=== PATIENT | male | born 1955 | race Caucasian/White ===

== ENCOUNTER → 2023-12-28 | Outpatient (CLI) | payer MEDICARE, BC, SELFPAY ==
--- NOTE | 2023-12-28 12:46 | XR_ITS ---
Examination: PA chest single view TECHNIQUE: Upright PA chest single view Exam date 9: December 28, 2023 1501 hours INDICATIONS: Congestion difficulty breathing one week, history cardiac stents FINDINGS: Mild prominence cardiac contour Mild prominence pulmonary vasculature. No lobar pneumonia or pulmonary edema Moderate osteopenia Moderate thoracic spondylosis IMPRESSION: Mild vascular congestion
[2023-12-28 14:00] LABS: Basophils # (Auto) 0.1 Thou/mm3 (0.0-0.2); Basophils % (Auto) 1 % (0-2.5); Eosinophils # (Auto) 0.2 Thou/mm3 (0.0-0.5); Eosinophils % (Auto) 2 % (0-10); Hematocrit 35.3 % (41.0-53.0); Hemoglobin 11.8 g/dL (13.5-16.0); Immature Granulocytes % (Auto) 0 % (0-0); Immature Granulocytes Auto 0.02 Thou/mm3 (0.00-0.00); Lymphocytes # (Auto) 2.2 Thou/mm3 (1.0-4.8); Lymphocytes % (Auto) 22 % (10-50); Mean Corpuscular HGB Conc 33.4 g/dl (31.0-37.0); Mean Corpuscular Hemoglobin 32.2 pg (25.0-35.0); Mean Corpuscular Volume 96 fL (80-100); Monocytes # (Auto) 0.8 Thou/mm3 (0.0-0.8); Monocytes % (Auto) 8 % (0-12); Neutrophils # (Auto) 6.6 Thou/mm3 (1.8-7.7); Neutrophils % (Auto) 67 % (37-80); Nucleated Red Blood Cell % 0 /100 WBC (0); Platelet Count 308 Thou/mm3 (140-440); RDW Standard Deviation 49.1 fL (35.1-43.9); Red Blood Count 3.66 Miln/mm3 (4.50-5.90); White Blood Count 9.8 Thou/mm3 (3.8-10.6)
[2023-12-28 14:07] LABS: Prostate Specific Antigen 1.06 ng/mL (0-4.00)
[2023-12-28 14:08] LABS: Glucose Estimated Average 105 mg/dL (80-131); Hemoglobin A1C 5.3 % Hgb (4.8-6.0)
[2023-12-28 15:14] LABS: Alanine Aminotransferase 16 U/L (10-49); Albumin, Serum 4.8 gm/dL (3.4-4.8); Albumin/Globulin Ratio 1.9 (1.2-2.2); Alkaline Phosphatase 59 U/L (46-116); Anion Gap 9 (7-16); Aspartate Amino Transferase 16 U/L (0-34); BUN/Creatinine Ratio 16 Ratio (12-20); Bilirubin,Direct 0.2 mg/dL (0.0-0.3); Bilirubin,Total 0.5 mg/dL (0.3-1.2); Blood Urea Nitrogen 24 mg/dL (9-23); Calcium 9.3 mg/dL (8.3-10.6); Calcium (Corrected) 9.3 mg/dL (8.5-10.1); Carbon Dioxide 22.9 mMol/L (20.0-31.0); Chloride 107 mMol/L (98-107); Creatinine (Component) 1.5 mg/dL (0.6-1.3); Globulin 2.5 gm/dL (2.3-3.5); Glucose 89 mg/dL (74-106); Osmolality,Calculated 280 (275-295); Potassium 4.1 mMol/L (3.4-5.1); Sodium 139 mMol/L (136-145); Total Protein 7.3 gm/dL (5.7-8.2); eGFR 50 See Note
[2023-12-28 15:27] LABS: Cholesterol 170 mg/dL (132-200); HDL Cholesterol 42 mg/dL (40-60); LDL Cholesterol,Calculated 110 mg/dL (0-130); Triglycerides 88 mg/dL (30-150)
== END | disposition home or self-care (01) ==
LOC: CDIM 12:29 → COPL 12:42
PROVIDERS: PCP Internal Medicine; Referring Provider Internal Medicine; Visit Provider Radiology Diagnostic Radiology
DX: J98.4 Other disorders of lung (principal); R07.9 Chest pain, unspecified; R06.02 Shortness of breath
CPT/HCPCS: 36415; 71046; 80053; 80061; 82248; 83036; 84100; 84153; 85025

== ENCOUNTER → 2024-02-12 | Outpatient (CLI) | payer MEDICARE, SELFPAY ==
[2024-02-12 11:34] LABS: Basophils # (Auto) 0.1 Thou/mm3 (0.0-0.2); Basophils % (Auto) 1 % (0-2.5); Eosinophils # (Auto) 0.2 Thou/mm3 (0.0-0.5); Eosinophils % (Auto) 3 % (0-10); Hematocrit 38.3 % (41.0-53.0); Hemoglobin 12.5 g/dL (13.5-16.0); Immature Granulocytes % (Auto) 0 % (0-0); Immature Granulocytes Auto 0.02 Thou/mm3 (0.00-0.00); Lymphocytes # (Auto) 1.4 Thou/mm3 (1.0-4.8); Lymphocytes % (Auto) 21 % (10-50); Mean Corpuscular HGB Conc 32.6 g/dl (31.0-37.0); Mean Corpuscular Hemoglobin 32.1 pg (25.0-35.0); Mean Corpuscular Volume 99 fL (80-100); Monocytes # (Auto) 0.7 Thou/mm3 (0.0-0.8); Monocytes % (Auto) 10 % (0-12); Neutrophils # (Auto) 4.2 Thou/mm3 (1.8-7.7); Neutrophils % (Auto) 64 % (37-80); Nucleated Red Blood Cell % 0 /100 WBC (0); Platelet Count 288 Thou/mm3 (140-440); RDW Standard Deviation 55.6 fL (35.1-43.9); Red Blood Count 3.89 Miln/mm3 (4.50-5.90); White Blood Count 6.6 Thou/mm3 (3.8-10.6)
[2024-02-12 12:18] LABS: Albumin, Serum 4.7 gm/dL (3.4-4.8); Anion Gap 10 (7-16); BUN/Creatinine Ratio 13 Ratio (12-20); Blood Urea Nitrogen 19 mg/dL (9-23); Calcium 9.7 mg/dL (8.3-10.6); Calcium (Corrected) 9.7 mg/dL (8.5-10.1); Carbon Dioxide 25.3 mMol/L (20.0-31.0); Chloride 105 mMol/L (98-107); Creatinine (Component) 1.5 mg/dL (0.6-1.3); Glucose 95 mg/dL (74-106); Osmolality,Calculated 281 (275-295); Phosphorous 3.9 mg/dL (2.4-5.1); Potassium 4.5 mMol/L (3.4-5.1); Sodium 140 mMol/L (136-145); eGFR 50 See Note
[2024-02-12 12:23] LABS: B-Type Natriuretic Peptide 970 pg/mL (0-100)
== END | disposition home or self-care (01) ==
PROVIDERS: PCP Family Medicine; Referring Provider Family Medicine; Visit Provider Internal Medicine
DX: I50.20 Unspecified systolic (congestive) heart failure (principal)
CPT/HCPCS: 36415; 80069; 83880; 85025

== ENCOUNTER → 2024-03-29 | Outpatient (CLI) | payer MEDICARE, SELFPAY ==
[2024-03-29 14:46] LABS: Albumin, Serum 4.5 gm/dL (3.4-4.8); Anion Gap 11 (7-16); BUN/Creatinine Ratio 17 Ratio (12-20); Blood Urea Nitrogen 35 mg/dL (9-23); Calcium 9.4 mg/dL (8.3-10.6); Calcium (Corrected) 9.4 mg/dL (8.5-10.1); Carbon Dioxide 26.7 mMol/L (20.0-31.0); Chloride 102 mMol/L (98-107); Creatinine (Component) 2.1 mg/dL (0.6-1.3); Glucose 92 mg/dL (74-106); Osmolality,Calculated 287 (275-295); Phosphorous 3.9 mg/dL (2.4-5.1); Potassium 4.6 mMol/L (3.4-5.1); Sodium 140 mMol/L (136-145); eGFR 33 See Note
[2024-03-29 14:47] LABS: B-Type Natriuretic Peptide 1218 pg/mL (0-100)
== END | disposition home or self-care (01) ==
PROVIDERS: PCP Family Medicine; Referring Provider Family Medicine; Visit Provider Family Medicine
DX: I50.20 Unspecified systolic (congestive) heart failure (principal)
CPT/HCPCS: 36415; 80069; 83880

== ENCOUNTER → 2024-06-20 | Outpatient (CLI) | payer MEDICARE, BC, SELFPAY ==
[2024-06-20 13:16] LABS: Basophils # (Auto) 0.1 Thou/mm3 (0.0-0.2); Basophils % (Auto) 1 % (0-2.5); Eosinophils # (Auto) 0.2 Thou/mm3 (0.0-0.5); Eosinophils % (Auto) 3 % (0-10); Hematocrit 33.7 % (41.0-53.0); Hemoglobin 11.4 g/dL (13.5-16.0); Immature Granulocytes % (Auto) 0 % (0-0); Immature Granulocytes Auto 0.02 Thou/mm3 (0.00-0.00); Lymphocytes # (Auto) 1.8 Thou/mm3 (1.0-4.8); Lymphocytes % (Auto) 23 % (10-50); Mean Corpuscular HGB Conc 33.8 g/dl (31.0-37.0); Mean Corpuscular Hemoglobin 32.7 pg (25.0-35.0); Mean Corpuscular Volume 97 fL (80-100); Monocytes # (Auto) 0.7 Thou/mm3 (0.0-0.8); Monocytes % (Auto) 10 % (0-12); Neutrophils # (Auto) 4.9 Thou/mm3 (1.8-7.7); Neutrophils % (Auto) 64 % (37-80); Nucleated Red Blood Cell % 0 /100 WBC (0); Platelet Count 258 Thou/mm3 (140-440); Red Blood Count 3.49 Miln/mm3 (4.50-5.90); White Blood Count 7.6 Thou/mm3 (3.8-10.6)
[2024-06-20 13:27] LABS: Prostate Specific Antigen 1.34 ng/mL (0-4.00)
[2024-06-20 13:29] LABS: Anion Gap 8 (7-16); BUN/Creatinine Ratio 19 Ratio (12-20); Blood Urea Nitrogen 33 mg/dL (9-23); Calcium 8.8 mg/dL (8.3-10.6); Carbon Dioxide 26.4 mMol/L (20.0-31.0); Cardiac Risk Estimate 3.9 RATIO (4.0-6.7); Chloride 104 mMol/L (98-107); Cholesterol 121 mg/dL (132-200); Creatinine (Component) 1.7 mg/dL (0.6-1.3); Glucose 91 mg/dL (74-106); HDL Cholesterol 31 mg/dL (40-60); LDL Cholesterol,Calculated 76 mg/dL (0-130); Osmolality,Calculated 282 (275-295); Phosphorous 3.7 mg/dL (2.4-5.1); Potassium 3.7 mMol/L (3.4-5.1); Sodium 138 mMol/L (136-145); Triglycerides 71 mg/dL (30-150); eGFR 43 See Note
[2024-06-20 13:45] LABS: Glucose Estimated Average 108 mg/dL (80-131); Hemoglobin A1C 5.4 % Hgb (4.8-6.0)
[2024-06-20 13:56] LABS: B-Type Natriuretic Peptide 908 pg/mL (0-100)
== END | disposition home or self-care (01) ==
PROVIDERS: PCP Family Medicine; Referring Provider Family Medicine; Visit Provider Internal Medicine
DX: R06.02 Shortness of breath (principal)
CPT/HCPCS: 36415; 80048; 80061; 83036; 83880; 84100; 84153; 85025

== ENCOUNTER → 2024-06-21 | Outpatient (CLI) | payer MEDICARE, BC, SELFPAY ==
--- NOTE | 2024-06-21 14:02 | XR_ITS ---
Examination: CT chest with intravenous contrast CT chest without intravenous contrast 2-D reconstructions Date and time of exam:09/21/2024 1423 hours INDICATIONS: Coughing shortness of breath one month CTDI:vol (mGy) 27 DLP: (mGycm) 982 Technique: Multiple axial sections of the thorax have been obtained. 3 mm slice thickness, from the hemidiaphragms to above the apices of the lungs. Mediastinal and lung density settings have been obtained. Intravenous contrast administered 30 cc Isovue-300 Noncontrast images have also been obtained. 2-D sagittal coronal images obtained. Low dose protocols were performed. One or more of the following dose reduction techniques were used; automated exposure control, adjustment of the mA and/or KV according to patient size, use of iterative reconstruction technique. Findings: Large right pleural effusion AP dimension ascending thoracic aorta 3.8 cm No pulmonary artery filling defects Heavy calcification left anterior descending coronary artery Mild enlargement cardiac contour Small left pleural effusion Vascular congestion, moderate Cirrhosis, liver nodular in contour Mild ascites No pancreatic or adrenal mass Moderate osteopenia IMPRESSION: Mild chronic heart failure pattern Large right pleural effusion
== END | disposition home or self-care (01) ==
LOC: SDIM 13:53
PROVIDERS: PCP Family Medicine; Referring Provider Internal Medicine; Visit Provider Internal Medicine
DX: J90 Pleural effusion, not elsewhere classified (principal)
CPT/HCPCS: 71270; A4649; Q9967

== ENCOUNTER → 2024-06-24 | Outpatient (CLI) | payer MEDICARE, BC, SELFPAY ==
[2024-06-24 16:11] LABS: Basophils # (Auto) 0.1 Thou/mm3 (0.0-0.2); Basophils % (Auto) 1 % (0-2.5); Eosinophils # (Auto) 0.3 Thou/mm3 (0.0-0.5); Eosinophils % (Auto) 4 % (0-10); Hematocrit 34.5 % (41.0-53.0); Hemoglobin 11.3 g/dL (13.5-16.0); Immature Granulocytes % (Auto) 0 % (0-0); Immature Granulocytes Auto 0.02 Thou/mm3 (0.00-0.00); Lymphocytes # (Auto) 1.8 Thou/mm3 (1.0-4.8); Lymphocytes % (Auto) 23 % (10-50); Mean Corpuscular HGB Conc 32.8 g/dl (31.0-37.0); Mean Corpuscular Hemoglobin 32.8 pg (25.0-35.0); Mean Corpuscular Volume 100 fL (80-100); Monocytes # (Auto) 0.9 Thou/mm3 (0.0-0.8); Monocytes % (Auto) 11 % (0-12); Neutrophils % (Auto) 62 % (37-80); Nucleated Red Blood Cell % 0 /100 WBC (0); Platelet Count 246 Thou/mm3 (140-440); RDW Standard Deviation 57.5 fL (35.1-43.9); Red Blood Count 3.45 Miln/mm3 (4.50-5.90)
[2024-06-24 16:18] LABS: INR 1.2 (0.9-1.3); Partial Thromboplastin Time 28.6 Seconds (22.0-36.0); Prothrombin Time 12.7 Seconds (9.0-12.2)
[2024-06-24 16:21] LABS: Anion Gap 6 (7-16); BUN/Creatinine Ratio 18 Ratio (12-20); Blood Urea Nitrogen 33 mg/dL (9-23); Carbon Dioxide 28.9 mMol/L (20.0-31.0); Chloride 102 mMol/L (98-107); Creatinine (Component) 1.8 mg/dL (0.6-1.3); Glucose 100 mg/dL (74-106); Osmolality,Calculated 281 (275-295); Potassium 4.1 mMol/L (3.4-5.1); Sodium 137 mMol/L (136-145); eGFR 40 See Note
== END | disposition home or self-care (01) ==
LOC: COPL 15:03
PROVIDERS: PCP Family Medicine; Referring Provider Internal Medicine; Visit Provider Internal Medicine
DX: I25.10 Atherosclerotic heart disease of native coronary artery without angina pectoris (principal); I48.91 Unspecified atrial fibrillation
CPT/HCPCS: 36415; 80048; 85025; 85610; 85730

== ENCOUNTER → 2024-06-27 | Outpatient (CLI) | payer MEDICARE, BC, SELFPAY ==
--- NOTE | 2024-06-27 | XR_ITS ---
Examination: PA chest single view TECHNIQUE: Upright PA chest single view Date and time: June 27, 2024 1252 hours INDICATIONS: Postthoracentesis today. FINDINGS: No pneumothorax post thoracentesis Mild enlargement cardiac contour Moderate osteopenia IMPRESSION: No pneumothorax post thoracentesis
--- NOTE | 2024-06-27 12:00 | XR_ITS ---
Examination: Ultrasound-guided right thoracentesis Ultrasound right hemithorax Ultrasound left hemithorax Date and time: June 27, 2024 1103 hours INDICATIONS: Difficulty breathing this week, large right pleural effusion on CT chest June 21, 2024 TECHNIQUE AND FINDINGS: Grayscale sonographic images right and left hemithoraces Large right pleural effusion Informed consent provided. Timeout performed Sterile drape applied hand hygiene maximum barrier sterile technique ultrasound sterile technique 1% lidocaine administered for local anesthesia Utilizing ultrasonographic guidance 5 Telugu catheter placed in the right pleural space 1600 cc pleural fluid removed Estimated blood loss 0 cc IMPRESSION: Successful ultrasound-guided right thoracentesis, 1600 cc pleural fluid removed
== END | disposition home or self-care (01) ==
PROVIDERS: PCP Family Medicine; Referring Provider Internal Medicine; Visit Provider Internal Medicine
DX: J90 Pleural effusion, not elsewhere classified (principal); R06.02 Shortness of breath
CPT/HCPCS: 32555; C1729

== ENCOUNTER 2024-07-27 11:32 | Emergency (ER) | payer MEDICARE, BC, SELFPAY ==
--- NOTE | 2024-07-27 | XR_ITS ---
Examination: PA chest single view TECHNIQUE: Upright PA chest single view Date and time: July 27, 2024 1302 hours INDICATIONS: Post right thoracentesis FINDINGS: Decrease in right pleural fluid compared with July 27, 2024 No pneumothorax Mild to moderate enlargement cardiac contour IMPRESSION: No pneumothorax post thoracentesis
[2024-07-27 11:33] VITALS: BMI 26.4
[2024-07-27 11:55] VITALS: BP 115/62; PULSE 98; RESP 16; TEMP 37.2; O2SAT 91
--- NOTE | 2024-07-27 11:56 | EKG_ITS ---
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
--- NOTE | 2024-07-27 11:57 | XR_ITS ---
Examination: Ultrasound-guided right thoracentesis Ultrasound right and left hemithoraces Date and time: July 27, 2024 1239 hours INDICATIONS: Shortness of breath this week, history recurrent large right pleural effusions TECHNIQUE AND FINDINGS: Sonographic images right and left hemithoraces demonstrate large right pleural effusion Informed consent provided. Timeout performed. Skin prepped over the right hemithorax and sterile drape applied hand hygiene ultrasound sterile technique 1% lidocaine administered for local anesthesia Utilizing ultrasonographic guidance 5 British catheter introduced percutaneously into the right hemithorax 1750 cc pleural fluid removed IMPRESSION: Successful ultrasound-guided right thoracentesis, 1750 cc pleural fluid removed
--- NOTE | 2024-07-27 11:57 | PD.EDSOB ---
ED SOB =RME/HPI General Chief Complaint: Shortness of Breath/Dyspnea Stated Complaint: SOB WITH EXERTION X2WKS SENT BY [facility] Time Seen by Provider: 07/27/24 11:38 Arrival date/time: 07/27/24 11:32 RME / HPI RME / HPI Narrative: 69-year-old male patient with significant history of congestive heart failure, was sent to us by Dr. Boyle for floral effusion. Patient has been having worsening shortness of breath for the last 2 weeks, associated with dyspnea on exertion, orthopnea, and swelling of the bilateral lower extremity. Patient denies any cough denies any fever denies any chest pain denies any other complaints. Patient had thoracentesis done also a month ago. Related Data Home Medications ?Medication ?Instructions ?Recorded ?Confirmed Aspirin/Acetaminophen/Caffeine 1 tab PO QDAY PRN HEADACHE #0 tabs 12/05/13 MIGRAINE * (EXCEDRIN MIGRAINE *) Allergies Allergy/AdvReac Type Severity Reaction Status Date / Time No Known Allergies Allergy Verified 07/27/24 11:34 Review of Systems Review of Systems Narrative Review of Systems: Review of system reviewed and within normal limits except mentioned in HPI ED Exam Narrative Physical exam: VITAL SIGNS: Reviewed. GENERAL APPEARANCE: Alert and interactive, follows commands, no acute distress, HEAD AND FACE: Non-traumatic. ENT: PERRL, pink conjunctivitis, eyelid no trauma, Mucous membrane moist. NECK: Supple, nontender, no nuchal rigidity. CHEST: No tenderness, no crepitus, no paradoxical movement, no retractions. LUNGS: CSymmetric, + rales, no wheezing, no ronchi, no stridor, decreased breath sounds on the right lower lung, HEART: Regular rate, regular rhythm, no murmur, no gallops. ABDOMEN: Soft, positive bowel sounds, nondistended, no guarding, nontender, no rebound, no masses, RECTAL: Deferred. GENITAL: Deferred. NEUROLOGICAL: Gross motor function intact sensory function intact, Appropriate for age. MUSCULOSKELETAL: low back nontender, full range of motion. EXTREMITIES:+ Bilateral lower extremity +2 edema ,non pitting ,nontender, full range of motion. SKIN: Color pink, dry, no rash, no lacerations, no abrasions, no contusions. LYMPHATICS: Deferred. Course Quality Measures none Orders Category Date Time Status EKG (ED ONLY) *Do not use* NOW Care 07/27/24 11:56 Completed EKG (ED Only) Stat Exams 07/27/24 11:56 Draft US thoracentesis Stat Exams 07/27/24 11:57 Completed XR chest 1V post procedure Urgent Exams 07/27/24 Completed Amylase,Pleural Fluid Routine Lab 07/27/24 13:45 Received BNP [B-Type Natriuretic Peptide] Stat Lab 07/27/24 12:02 Completed Body Fld Cult w Irina & Gram St Routine Lab 07/27/24 13:45 Received CBC [CBC] Stat Lab 07/27/24 12:02 Completed CMP [Comprehensive Metabolic Panel] Stat Lab 07/27/24 12:02 Completed Glucose,Pleural Fluid Routine Lab 07/27/24 13:45 Received LDH,Pleural Fluid Routine Lab 07/27/24 13:45 Received PTT [Partial Thromboplastin Time] Stat Lab 07/27/24 12:02 Completed Pleural Fld Cell Count Diff Stat Lab 07/27/24 13:45 Received Protein Total,Pleural Fluid Routine Lab 07/27/24 13:45 Received Prothrombin Time with INR Stat Lab 07/27/24 12:02 Completed Troponin I Stat Lab 07/27/24 12:02 Completed Lidocaine 1% Pf 30 ml [Xylocaine 1% Pf 30 ml] Med 07/27/24 12:31 Discontinued 30 ml .ROUTE .STK-MED ONE Vital Signs Vital signs: Vital Signs Temperature 99.0 F 07/27/24 11:55 Pulse Rate 98 07/27/24 11:55 Respiratory Rate 16 07/27/24 11:55 Blood Pressure 115/62 07/27/24 11:55 Pulse Oximetry (%) 91 L 07/27/24 11:55 Oxygen Delivery Method Room Air 07/27/24 11:55 Shortness of Breath / Dyspnea MDM Narrative MDM Narrative:: 69-year-old male patient with significant history of congestive heart failure, was sent to us by Dr. Boyle for floral effusion. Patient has been having worsening shortness of breath for the last 2 weeks, associated with dyspnea on exertion, orthopnea, and swelling of the bilateral lower extremity. Patient denies any cough denies any fever denies any chest pain denies any other complaints. Patient had thoracentesis done also a month ago. EKG as interpreted by me shows sinus rhythm, ventricular rate of 97 bpm, no ST segment elevation depression noted. No pneumothorax noted on chest x-ray post thoracentesis. Patient underwent ultrasound-guided thoracentesis done by IR, and they were able to remove 1750 cc of pleural fluid with pleural fluid was sent for workup and told the patient to follow-up closely with PCP for the results including pathology results. Patient agrees with the plan. Patient verbalized significant improvement of symptoms, starting 92% on room air Patient data External records reviewed:: [facility] previous records Clinical information provided by:: none Social determinants that could affect healthcare access:: none Patient has the following chronic illnesses:: History of congestive heart failure How is presenting disease/condition affected by chronic disease/condition?: exacerbated by Evaluation data The following diagnostics were reviewed and interpreted by me:: lab results, radiology exam(s) and EKG tracing(s) Lab and/or radiology exams considered but not ordered:: None Interpretation Summary: See results in [facility] Medications / Prescriptions Medications or Prescriptions considered but not ordered:: None Medication administrations:: Medication Administration History Discontinued Medications Lidocaine HCl (Lidocaine Inj Pf 1% 30 Ml Vial) Confirm Administered Dose 30 ml .ROUTE .STK-MED ONE Stop: 07/27/24 12:32 None Consultations Consultation(s) initiated? (list below): No Diagnosis Shortness of Breath Differential Diagnosis: acute exacerbation of chronic obstructive airways disease Most likely diagnosis given after review of the tests above:: leural effusion, history of congestive heart failure Admission Indicated Admission indicated?: not indicated Admission Request Was there a request for admission?: No Disposition Plan Disposition Plan: Discharge Discharge Attestation Discharge Attestation: The patient and all family members were given an opportunity to ask questions and understood the discharge instructions. Discharge instructions specifically effects, indications for sooner follow up or return to the emergency department, and the expected course of current diagnosis. Patient condition: Stable Discharge Plan Plan Patient Disposition: HOME (Self Care) Discharge Disposition comment: Stable Prescriptions/Referrals Prescriptions/Med Rec: No Action Aspirin/Acetaminophen/Caffeine MIGRAINE * (EXCEDRIN MIGRAINE *) 1 TAB tablet 1 tab PO QDAY PRN (Reason: HEADACHE) Qty: 0 Referrals: Ronni Boyle MD [Primary Care Provider] - In 1 week Problem List Clinical Impression: Pleural effusion, History of CHF (congestive heart failure) Patient/Caregiver Discharge Instructions Discharge Activity: activity as tolerated Education Materials: Thoracentesis Dc Additional Instructions: Thank you for the opportunity for serving you today. You are stable for discharged . You are advised to: Follow-up with your PCP in 1 to 2 days Return to ED for worsening of symptoms Increase oral fluids I sent the Pleural fluid for laboratory workup and pathology, the results will be back probably tomorrow please follow-up with your PCP for the results Print Language: Citizen Of [place] Stand Alone Forms: Selena Award Info., Patient Portal Info Letter BHAVIK/ABDOUL Supervising Physician BHAVIK/ABDOUL Supervising Physician: MD Pina
[2024-07-27 12:08] LABS: Basophils # (Auto) 0.1 Thou/mm3 (0.0-0.2); Basophils % (Auto) 1 % (0-2.5); Eosinophils # (Auto) 0.2 Thou/mm3 (0.0-0.5); Eosinophils % (Auto) 2 % (0-10); Hematocrit 32.5 % (41.0-53.0); Hemoglobin 11.1 g/dL (13.5-16.0); Immature Granulocytes % (Auto) 0 % (0-0); Immature Granulocytes Auto 0.02 Thou/mm3 (0.00-0.00); Lymphocytes # (Auto) 1.3 Thou/mm3 (1.0-4.8); Lymphocytes % (Auto) 18 % (10-50); Mean Corpuscular HGB Conc 34.2 g/dl (31.0-37.0); Mean Corpuscular Hemoglobin 33.3 pg (25.0-35.0); Mean Corpuscular Volume 98 fL (80-100); Monocytes # (Auto) 0.6 Thou/mm3 (0.0-0.8); Monocytes % (Auto) 9 % (0-12); Neutrophils # (Auto) 5.2 Thou/mm3 (1.8-7.7); Neutrophils % (Auto) 70 % (37-80); Nucleated Red Blood Cell % 0 /100 WBC (0); Platelet Count 216 Thou/mm3 (140-440); Red Blood Count 3.33 Miln/mm3 (4.50-5.90); White Blood Count 7.4 Thou/mm3 (3.8-10.6)
[2024-07-27 12:29] LABS: B-Type Natriuretic Peptide 1239 pg/mL (0-100)
[2024-07-27 12:34] LABS: INR 1.1 (0.9-1.3); Prothrombin Time 12.4 Seconds (9.0-12.2)
[2024-07-27 12:37] LABS: Alanine Aminotransferase 18 U/L (10-49); Albumin, Serum 4.4 gm/dL (3.4-4.8); Albumin/Globulin Ratio 1.5 (1.2-2.2); Alkaline Phosphatase 61 U/L (46-116); Anion Gap 9 (7-16); Aspartate Amino Transferase 22 U/L (0-34); BUN/Creatinine Ratio 17 Ratio (12-20); Blood Urea Nitrogen 33 mg/dL (9-23); Calcium 9.4 mg/dL (8.3-10.6); Calcium (Corrected) 9.4 mg/dL (8.5-10.1); Carbon Dioxide 27.8 mMol/L (20.0-31.0); Chloride 101 mMol/L (98-107); Estimated Creatinine Clearance 37.2 mL/min (>60); Globulin 2.9 gm/dL (2.3-3.5); Glucose 91 mg/dL (74-106); Osmolality,Calculated 282 (275-295); Potassium 4.4 mMol/L (3.4-5.1); Sodium 138 mMol/L (136-145); Total Protein 7.3 gm/dL (5.7-8.2); eGFR 35 See Note
[2024-07-27 14:15] VITALS: BP 110/68; PULSE 90; RESP 14; TEMP 36.6; O2SAT 97
[2024-07-27 15:00] LABS: Amylase,Pleural Fluid 49 IU/L; Glucose,Pleural Fluid 97 mg/dL; LDH,Pleural Fluid 110 IU/L; Protein Total,Pleural Fluid 3.8 g/dL
[2024-07-27 16:13] LABS: Pleural Fluid Appearance Hazy; Pleural Fluid Color Yellow
[2024-07-27 16:14] LABS: Pleural Fluid Mononuclear 87 %; Pleural Fluid Polynuclear 13 %; Pleural Fluid RBC 7 /cmm; Pleural Fluid WBC 83 /cmm
== END 2024-07-27 14:16 | disposition home or self-care (01) ==
PROVIDERS: Nurse Practitioner Family; Emergency Provider Emergency Medicine; PCP Family Medicine
DX: J90 Pleural effusion, not elsewhere classified (principal); I50.9 Heart failure, unspecified
CPT/HCPCS: 32555; 36415; 71046; 80053; 82150; 82945; 83615; 83880; 84157; 84484; 85025; 85610; 85730; 87070; 87075; 87205; 89051; 93005; 99284; C1729

== ENCOUNTER → 2024-07-27 | Outpatient (CLI) | payer MEDICARE, BC, SELFPAY ==
--- NOTE | 2024-07-27 08:32 | XR_ITS ---
Examination: PA lateral chest 2 views TECHNIQUE: Upright PA lateral chest 2 views Date and time: July 27, 2024 0842 hours Comparison June 27, 2024 INDICATIONS: History recurrent right pleural fluid, history cardiac stents, history thoracentesis one month ago FINDINGS: Moderate right pleural fluid Mild enlargement cardiac contour Mild pulmonary vascular redistribution. No lobar pneumonia IMPRESSION: Moderate right pleural fluid
== END | disposition home or self-care (01) ==
PROVIDERS: PCP Internal Medicine; Referring Provider Internal Medicine; Visit Provider Internal Medicine
DX: R91.8 Other nonspecific abnormal finding of lung field (principal)
CPT/HCPCS: 71046

== ENCOUNTER 2024-08-09 10:42 | Emergency (ER) | payer MEDICARE, BC, SELFPAY ==
[2024-08-09 10:43] VITALS: BMI 28.5
[2024-08-09 10:48] VITALS: BP 116/75; PULSE 93; RESP 19; TEMP 37.3; O2SAT 96
--- NOTE | 2024-08-09 11:08 | XR_ITS ---
Examination: Ultrasound-guided right thoracentesis Ultrasound right hemithorax Date and time: August 09, 2024 1259 hours INDICATIONS: History shortness of breath 3, large right pleural effusions TECHNIQUE AND FINDINGS: Sonographic images right breast Significant right pleural effusion Informed consent provided. Timeout performed. Skin prepped over the right hemithorax and Steri-Drape applied, hand hygiene ultrasound sterile technique 1% lidocaine administered for local anesthesia Utilizing ultrasonographic guidance 5 [place] Leonean catheter placed in the right pleural space 1600 cc pleural fluid removed Estimated blood loss 0 cc IMPRESSION: Successful ultrasound-guided right thoracentesis, 1600 cc pleural fluid removed
--- NOTE | 2024-08-09 11:09 | EDRME_ITS ---
Rapid Medical Screening Exam [facility] Arrival date/time: 08/09/24 10:42 69-year-old male with no known medical history presents to the emergency room with a chief complaint of shortness of breath and difficulty breathing. Patient states he has a history of pleural effusions in his right lung. Patient states his last thoracentesis was on 07/27/2024 where they removed 1.7 L. I have greeted and performed a focused initial assessment of this patient. A comprehensive ED assessment and evaluation of the patient, analysis of all test results, and completion of the medical decision making process will be conducted by additional ED providers. Chief Complaint: General Adult/Misc Complain Time Seen by Provider: 08/09/24 10:47 Vital signs: Vital Signs Temperature 99.1 F 08/09/24 10:48 Pulse Rate 93 08/09/24 10:48 Respiratory Rate 19 08/09/24 10:48 Blood Pressure 116/75 08/09/24 10:48 Pulse Oximetry (%) 96 08/09/24 10:48 Oxygen Delivery Method Room Air 08/09/24 10:48 Vital signs reviewed by provider: Yes
[2024-08-09 11:50] LABS: Basophils # (Auto) 0.1 Thou/mm3 (0.0-0.2); Basophils % (Auto) 1 % (0-2.5); Eosinophils # (Auto) 0.4 Thou/mm3 (0.0-0.5); Eosinophils % (Auto) 5 % (0-10); Hematocrit 35.2 % (41.0-53.0); Hemoglobin 12.0 g/dL (13.5-16.0); Immature Granulocytes Auto 0.03 Thou/mm3 (0.00-0.00); Lymphocytes # (Auto) 1.5 Thou/mm3 (1.0-4.8); Lymphocytes % (Auto) 18 % (10-50); Mean Corpuscular HGB Conc 34.1 g/dl (31.0-37.0); Mean Corpuscular Hemoglobin 33.2 pg (25.0-35.0); Mean Corpuscular Volume 98 fL (80-100); Monocytes # (Auto) 0.8 Thou/mm3 (0.0-0.8); Monocytes % (Auto) 9 % (0-12); Neutrophils # (Auto) 5.5 Thou/mm3 (1.8-7.7); Neutrophils % (Auto) 67 % (37-80); Nucleated Red Blood Cell # 0.00 Thou/mm3 (0.00-0.00); Nucleated Red Blood Cell % 0 /100 WBC (0); Platelet Count 277 Thou/mm3 (140-440); RDW Standard Deviation 57.5 fL (35.1-43.9); Red Blood Count 3.61 Miln/mm3 (4.50-5.90); White Blood Count 8.3 Thou/mm3 (3.8-10.6)
[2024-08-09 12:04] LABS: INR 1.1 (0.9-1.3); Partial Thromboplastin Time 28.9 Seconds (22.0-36.0); Prothrombin Time 11.9 Seconds (9.0-12.2)
[2024-08-09 12:08] LABS: Alanine Aminotransferase 14 U/L (10-49); Albumin, Serum 4.3 gm/dL (3.4-4.8); Albumin/Globulin Ratio 1.4 (1.2-2.2); Alkaline Phosphatase 66 U/L (46-116); Anion Gap 7 (7-16); Aspartate Amino Transferase 19 U/L (0-34); BUN/Creatinine Ratio 14 Ratio (12-20); Bilirubin,Total 0.6 mg/dL (0.3-1.2); Blood Urea Nitrogen 23 mg/dL (9-23); Calcium 9.0 mg/dL (8.3-10.6); Calcium (Corrected) 9.0 mg/dL (8.5-10.1); Carbon Dioxide 27.7 mMol/L (20.0-31.0); Chloride 107 mMol/L (98-107); Creatinine (Component) 1.7 mg/dL (0.6-1.3); Estimated Creatinine Clearance 47.7 mL/min (>60); Globulin 3.0 gm/dL (2.3-3.5); Glucose 90 mg/dL (74-106); Osmolality,Calculated 286 (275-295); Potassium 4.2 mMol/L (3.4-5.1); Sodium 142 mMol/L (136-145); Total Protein 7.3 gm/dL (5.7-8.2); eGFR 43 See Note
--- NOTE | 2024-08-09 14:18 | PC.NURSE ---
PT GOT TIRED OF WAITING SO LEFT AMA; AMA FORM SIGNED.
== END 2024-08-09 14:19 | disposition left against medical advice (07) ==
LOC: SERX 12:23
PROVIDERS: Nurse Practitioner Family; Emergency Provider Emergency Medicine; PCP Internal Medicine
DX: J90 Pleural effusion, not elsewhere classified (principal); Z53.29 Procedure and treatment not carried out because of patient's decision for other reasons
CPT/HCPCS: 32555; 36415; 80053; 85025; 85610; 85730; 99284; C1729

== ENCOUNTER → 2024-08-09 | Outpatient (CLI) | payer MEDICARE, BC, SELFPAY ==
--- NOTE | 2024-08-09 | XR_ITS ---
Examination: PA chest single view TECHNIQUE: Upright PA chest single view Date and time: August 09, 2024 1338 hours INDICATIONS: Postthoracentesis. FINDINGS: Mild enlargement cardiac contour. No pneumothorax Minor blunting of the right costophrenic angle IMPRESSION: No pneumothorax postthoracentesis today
--- NOTE | 2024-08-09 09:31 | XR_ITS ---
Examination: PA lateral chest 2 views TECHNIQUE: Upright PA lateral chest 2 views Date and time: August 09, 2024 0941 hours INDICATIONS: Shortness of breath beginning one month ago FINDINGS: Mild enlargement cardiac contour. Mild vascular congestion. Mild pneumonia right base with moderate right pleural effusion IMPRESSION: Mild pneumonia right base with moderate right pleural effusion
== END | disposition home or self-care (01) ==
PROVIDERS: PCP Internal Medicine; Referring Provider Internal Medicine; Visit Provider Internal Medicine
DX: J18.9 Pneumonia, unspecified organism (principal); J90 Pleural effusion, not elsewhere classified
CPT/HCPCS: 71046

== ENCOUNTER 2024-09-21 09:25 | Day surgery (SDC) | payer MEDICARE, BC, SELFPAY ==
[2024-09-20 11:08] VITALS: BMI 26.7
[2024-09-21] VITALS (14 sets, daily range): BP systolic 104–128; BP diastolic 73–97; PULSE 90–100; RESP 16–22; TEMP 36.3–36.7; O2SAT 94–100; BMI 25.6
[2024-09-21] MEDS: fentaNYL CIT INJ 50 mCg/ML AMP 2ML IVP (11:07)
[2024-09-21] MEDS: MIDAZOLAM INJ 1 MG/ML VIAL 2 ML (ASD USE ONLY) 2 MG IVP ×2 (11:07→11:26)
[2024-09-21] MEDS: SODIUM CHLORIDE 0.9% 500 ML 500 ML 20 ML IV (11:07)
[2024-09-21] MEDS: BENZOCAINE 20% (Hurricaine) SPRAY 1 DOSE TOP (11:07)
[2024-09-21] MEDS: fentaNYL CIT INJ 50 mCg/ML AMP 2ML (ASD USE ONLY) IVP (11:26)
== END 2024-09-21 12:34 | disposition home or self-care (01) ==
PROVIDERS: PCP Internal Medicine; Referring Provider Specialist; Visit Provider Specialist
PROC: 0DBE8ZX Excision of Large Intestine, Via Natural or Artificial Opening Endoscopic, Diagnostic (ICD-10-PCS; CPT 45380; principal; 2024-09-21 09:45)
PROC: (CPT 43239; 2024-09-21 09:45)
DX: K64.9 Unspecified hemorrhoids (principal); D62 Acute posthemorrhagic anemia; K57.30 Diverticulosis of large intestine without perforation or abscess without bleeding; R63.4 Abnormal weight loss; Z68.25 Body mass index [BMI] 25.0-25.9, adult; J90 Pleural effusion, not elsewhere classified
CPT/HCPCS: 45378; J1200; J2250; J3010; J7999; A9270

== ENCOUNTER 2024-10-07 16:57 | Emergency (ER) | payer MEDICARE, BC, SELFPAY ==
[2024-10-07 16:58] VITALS: BMI 25.7
[2024-10-07 17:03] VITALS: BP 112/70; PULSE 102; RESP 22; TEMP 36.9; O2SAT 94
--- NOTE | 2024-10-07 17:09 | XR_ITS ---
Examination: PA lateral chest 2 views Technique: Upright PA lateral chest 2 views. Date and time: October 07, 2024, 1719 hrs., Comparison October 07, 2024 Indications: Difficulty breathing today. Findings: Mild chronic heart failure pattern. Mild enlargement cardiac contour with prominent vascular congestion. Large right pleural effusion. Significant osteopenia with moderate thoracic spondylosis Impression: Mild chronic heart failure pattern Large right pleural effusion
--- NOTE | 2024-10-07 17:11 | PD.EDRME ---
Rapid Medical Screening Exam [facility] Arrival date/time: 10/07/24 16:57 69-year-old male with a history of pleural effusions needing thoracentesis presents to the emergency room with a chief complaint of shortness of breath x 2 days I have greeted and performed a focused initial assessment of this patient. A comprehensive ED assessment and evaluation of the patient, analysis of all test results, and completion of the medical decision making process will be conducted by additional ED providers. Chief Complaint: Shortness of Breath/Dyspnea Vital signs: Vital Signs Temperature 98.5 F 10/07/24 17:03 Pulse Rate 102 H 10/07/24 17:03 Respiratory Rate 22 H 10/07/24 17:03 Blood Pressure 112/70 10/07/24 17:03 Pulse Oximetry (%) 94 L 10/07/24 17:03 Oxygen Delivery Method Room Air 10/07/24 17:03 Vital signs reviewed by provider: Yes
[2024-10-07 17:27] LABS: Basophils # (Auto) 0.1 Thou/mm3 (0.0-0.2); Basophils % (Auto) 1 % (0-2.5); Eosinophils # (Auto) 0.3 Thou/mm3 (0.0-0.5); Eosinophils % (Auto) 4 % (0-10); Hematocrit 31.9 % (41.0-53.0); Hemoglobin 10.5 g/dL (13.5-16.0); Immature Granulocytes Auto 0.03 Thou/mm3 (0.00-0.00); Lymphocytes # (Auto) 1.4 Thou/mm3 (1.0-4.8); Lymphocytes % (Auto) 16 % (10-50); Mean Corpuscular HGB Conc 32.9 g/dl (31.0-37.0); Mean Corpuscular Hemoglobin 32.9 pg (25.0-35.0); Mean Corpuscular Volume 100 fL (80-100); Monocytes # (Auto) 0.9 Thou/mm3 (0.0-0.8); Monocytes % (Auto) 10 % (0-12); Neutrophils # (Auto) 6.3 Thou/mm3 (1.8-7.7); Neutrophils % (Auto) 70 % (37-80); Nucleated Red Blood Cell # 0.00 Thou/mm3 (0.00-0.00); Nucleated Red Blood Cell % 0 /100 WBC (0); Platelet Count 257 Thou/mm3 (140-440); RDW Standard Deviation 50.2 fL (35.1-43.9); Red Blood Count 3.19 Miln/mm3 (4.50-5.90); White Blood Count 9.1 Thou/mm3 (3.8-10.6)
[2024-10-07 17:44] LABS: INR 1.2 (0.9-1.3); Partial Thromboplastin Time 28.4 Seconds (22.0-36.0); Prothrombin Time 12.5 Seconds (9.0-12.2)
[2024-10-07 17:57] LABS: Alanine Aminotransferase 7 U/L (10-49); Albumin, Serum 4.3 gm/dL (3.4-4.8); Albumin/Globulin Ratio 1.4 (1.2-2.2); Alkaline Phosphatase 78 U/L (46-116); Anion Gap 12 (7-16); Aspartate Amino Transferase 12 U/L (0-34); BUN/Creatinine Ratio 18 Ratio (12-20); Bilirubin,Total 0.6 mg/dL (0.3-1.2); Blood Urea Nitrogen 35 mg/dL (9-23); Calcium 9.9 mg/dL (8.3-10.6); Calcium (Corrected) 9.9 mg/dL (8.5-10.1); Carbon Dioxide 24.8 mMol/L (20.0-31.0); Chloride 106 mMol/L (98-107); Creatinine (Component) 1.9 mg/dL (0.6-1.3); Estimated Creatinine Clearance 39.1 mL/min (>60); Globulin 3.0 gm/dL (2.3-3.5); Glucose 102 mg/dL (74-106); Osmolality,Calculated 292 (275-295); Potassium 3.8 mMol/L (3.4-5.1); Sodium 143 mMol/L (136-145); Total Protein 7.3 gm/dL (5.7-8.2); eGFR 37 See Note
[2024-10-07 18:30] VITALS: BP 100/79; PULSE 88; RESP 18; TEMP 37; O2SAT 97
--- NOTE | 2024-10-07 18:49 | EKG_ITS ---
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
--- NOTE | 2024-10-07 19:01 | EDNOTE_ITS ---
ED SOB =RME/HPI General Chief Complaint: Shortness of Breath/Dyspnea Stated Complaint: DIFF BREATHING TODAY, HAS FLUID IN LUNG Time Seen by Provider: 10/07/24 17:12 Arrival date/time: 10/07/24 16:57 RME / HPI RME / HPI Narrative: 10/07/24 16:57 69-year-old male with a history of pleural effusions needing thoracentesis presents to the emergency room with a chief complaint of shortness of breath x 2 days I have greeted and performed a focused initial assessment of this patient. A comprehensive ED assessment and evaluation of the patient, analysis of all test results, and completion of the medical decision making process will be conducted by additional ED providers. DR. MIRAMONTES MAIN ED EVALUATION: 69 y/o male with Hx of CA, STEMI and CHF with Thoracentesis presents to ED c/o shortness of breath x 2 days. Patient currently takes Fenbendazole and Ivermectin. Last thoracentesis was performed on 08/09/2024. No other concerns or complaints expressed at this time. Related Data Allergies Allergy/AdvReac Type Severity Reaction Status Date / Time No Known Allergies Allergy Verified 10/07/24 16:59 Review of Systems Review of Systems Systems Reviewed: All systems reviewed, normal except as documented Past Medical History Past Medical History CARDIAC: Positive Cardiac Disorders, Myocardial Infarction (STEMI) and Congestive Heart Failure MUSCULOSKELETAL: Positive Musculoskeletal Disorders and Fractures (Left Femur) OTHER HISTORY: Positive Cancer Surgical History SURGICAL: Positive Coronary Stent (7YEARS AGO total of [address]) ED Exam Narrative Physical exam: Generally patient is alert no obvious distress. Heart regular rate and rhythm, lungs show decreased breath sounds at the right base otherwise clear, neurologic exam no focal motor or sensory deficits, skin is warm pale and dry, extremities show no edema Course Course Course Narrative: CXR was ordered for determining the etiology of shortness of breath. Quality Measures none Orders Category Date Time Status EKG (ED ONLY) *Do not use* NOW Care 10/07/24 18:49 Completed EKG (ED Only) Stat Exams 10/07/24 18:49 Draft XR chest 1V post procedure Stat Exams 10/07/24 20:19 Taken XR chest 2V Stat Exams 10/07/24 17:09 Completed Body Fld Cult w Irina & Gram St Routine Lab 10/07/24 20:25 Ordered CBC Stat Lab 10/07/24 17:16 Completed CMP [Comprehensive Metabolic Panel] Stat Lab 10/07/24 17:16 Completed PT [Prothrombin Time with INR] Stat Lab 10/07/24 17:16 Completed PTT [Partial Thromboplastin Time] Stat Lab 10/07/24 17:16 Completed Troponin I Stat Lab 10/07/24 17:16 Completed Vital Signs Vital signs: Vital Signs Temperature 98.5 F 10/07/24 17:03 Pulse Rate 102 H 10/07/24 17:03 Respiratory Rate 22 H 10/07/24 17:03 Blood Pressure 112/70 10/07/24 17:03 Pulse Oximetry (%) 94 L 10/07/24 17:03 Oxygen Delivery Method Room Air 10/07/24 17:03 Shortness of Breath / Dyspnea MDM Narrative MDM Narrative:: Scribe Attestation: I, Esme Jordan, am scribing for and in the presence of Dr. Miramontes. Provider Notation: Although this document has been carefully reviewed, there may still be some phonetic and other typographical errors. These errors are purely grammatical due to imperfections in the software program and should not be construed in any way to? compromise the substance of the patient's medical care during this visit. Patient has had 3 thoracentesis in the past. The first in June and then another 1 in July and the last 1 on August 09 of this year. He complains of shortness of breath and believes he is due for thoracentesis. He denies any chest pain pressure tightness or heaviness. I interpreted all labs. Troponin is not elevated. EKG is nonischemic. Chest x-ray shows a moderately sized right-sided pleural effusion Procedure note: After consent was obtained and with ultrasound guidance, a right posterior lateral thoracentesis was carried out here in the emergency room and approximately 1500 cc of beet red-colored fluid was removed from the peritoneal cavity. Patient tolerated the procedure well. Follow-up chest x-ray showed a slight lucency at the right base. Patient after the procedure is in no acute distress. O2 saturation is 99%. Patient was to keep all of his follow-up appointments. He is to return to the emergency room for difficulty breathing. At this time the patient is stable for discharge as I do not believe an appreciable pneumothorax to be in place. Patient data External records reviewed:: [facility] previous records (Reviewed prior ED records from 08/09/24. Patient was seen for Shortness of breath.) Clinical information provided by:: patient Social determinants that could affect healthcare access:: none Patient has the following chronic illnesses:: Myocardial Infarction (STEMI) and Congestive Heart Failure How is presenting disease/condition affected by chronic disease/condition?: exacerbated by Evaluation data The following diagnostics were reviewed and interpreted by me:: lab results, radiology exam(s) and EKG tracing(s) Lab and/or radiology exams considered but not ordered:: None Interpretation Summary: RADIOLOGY Chest X-Ray: Findings: Mild chronic heart failure pattern. Mild enlargement cardiac contour with prominent vascular congestion. Large right pleural effusion. Significant osteopenia with moderate thoracic spondylosis Impression: Mild chronic heart failure pattern Large right pleural effusion Chest X-Ray 2: Pending official radiology report. Medications / Prescriptions Medications or Prescriptions considered but not ordered:: None Medication administrations:: See above if any. Consultations Consultation(s) initiated? (list below): No Diagnosis Shortness of Breath Differential Diagnosis: congestive heart failure, community acquired pneumonia and pulmonary embolism Most likely diagnosis given after review of the tests above:: None Admission Indicated Admission indicated?: not indicated Explain why admission is indicated or not indicated:: Patent does not meet admission criteria. Admission Request Was there a request for admission?: No Disposition Plan Disposition Plan: Discharge Discharge Attestation Discharge Attestation: The patient and all family members were given an opportunity to ask questions and understood the discharge instructions. Discharge instructions specifically effects, indications for sooner follow up or return to the emergency department, and the expected course of current diagnosis. Patient condition: Stable Discharge Plan Plan Patient Disposition: HOME (Self Care) Prescriptions/Referrals Referrals: Boyle,German, MD [Primary Care Provider] - In 1 week Problem List Clinical Impression: Pleural effusion, S/P thoracentesis Patient/Caregiver Discharge Instructions Additional Instructions: Return for worsening chest pain or shortness of breath. Keep your follow-up appointments. Continue current medications. Print Language: Ukrainian Stand Alone Forms: Selena Award Info., Patient Portal Info Letter
[2024-10-07 19:16] LABS: Troponin I 0.027 ng/mL (0.0-0.045)
--- NOTE | 2024-10-07 20:19 | XR_ITS ---
Examination: AP chest single view Technique one AP portable upright chest single view. Time: October 07, 2024, 2031 hrs., Comparison October 07, 2024 1719 hrs. Indications: Post right thoracentesis. Findings: Lower right lateral pneumothorax, estimated 20% No shift of the heart mediastinum to the left Osseous structures are intact. Impression: Right lower lateral pneumothorax, estimated 20%
[2024-10-07 20:36] VITALS: BP 105/74; PULSE 90; RESP 35; TEMP 36.5; O2SAT 95
--- NOTE | 2024-10-07 21:07 | PD.EDADDENDU ---
Emergency Room Addendum Addendum Narrative: Patient is in absolutely no acute distress with 99% O2 saturation on room air. The radiologist read the post thoracentesis chest x-ray is the possibility of a right basilar 20% pneumothorax. It appears much smaller than that. Patient was given strict return precautions to return for increasing chest pain or shortness of breath. He understands those instructions and will return immediately for chest pain or shortness of breath. I do not believe the patient needs a chest catheter at this time. Patient was fully made aware of his condition.
[2024-10-07 21:57] VITALS: BP 128/65; PULSE 82; RESP 20; TEMP 36.8; O2SAT 95
== END 2024-10-07 21:59 | disposition home or self-care (01) ==
PROVIDERS: Nurse Practitioner Family; Emergency Provider Emergency Medicine; PCP Family Medicine
DX: J90 Pleural effusion, not elsewhere classified (principal); R94.31 Abnormal electrocardiogram [ECG] [EKG]; I25.2 Old myocardial infarction; I50.9 Heart failure, unspecified
CPT/HCPCS: 32555; 36415; 71046; 80053; 84484; 85025; 85610; 85730; 87070; 87075; 87205; 93005; 99283

== ENCOUNTER → 2024-10-07 | Outpatient (CLI) | payer MEDICARE, BC, SELFPAY ==
--- NOTE | 2024-10-07 | XR_ITS ---
Examination: PA lateral chest 2 views TECHNIQUE: Upright PA lateral chest 2 views Date and time: October 07, 2024, 1332 hours, comparison August 09, 2024 INDICATIONS: Shortness of breath beginning 3 days ago. FINDINGS: Mild chronic heart failure pattern Mild enlargement cardiac contour. Prominent vascular congestion. Large right pleural effusion IMPRESSION: Mild heart failure Large right pleural effusion
== END | disposition home or self-care (01) ==
PROVIDERS: PCP Family Medicine; Referring Provider Internal Medicine; Visit Provider Internal Medicine
DX: I50.9 Heart failure, unspecified (principal); J90 Pleural effusion, not elsewhere classified
CPT/HCPCS: 71046

== ENCOUNTER → 2024-10-26 | Outpatient (CLI) | payer MEDICARE, BC, SELFPAY ==
--- NOTE | 2024-10-26 15:29 | XR_ITS ---
Examination: PA lateral chest 2 views TECHNIQUE: Upright PA lateral chest 2 views Date and time: October 26, 2024 1538 hours Comparison October 07, 2024 INDICATIONS: Shortness of breath one week FINDINGS: Mild heart failure Mild enlargement cardiac contour with prominent vascular congestion and moderate right pleural fluid No pneumonia IMPRESSION: Mild heart failure with moderate right pleural fluid
--- NOTE | 2024-10-26 15:29 | XR_ITS ---
Examination: CT abdomen and pelvis without contrast. Coronal 3-D reconstructions. Sagittal 2-D reconstructions. Date and time of exam:October 26, 2024 at 1553 hrs., Comparison December 29, 2012 Indications: Generalized abdominal pain 6 months CTDI: vol (mGy): 9.32 DLP: (mGycm): 612 Technique: Axial images of the abdomen have been obtained, 3 mm slice thickness Intravenous contrast material has not been administered. Low dose protocols were performed. One or more of the following dose reduction techniques were used; automated exposure control, adjustment of the mA and/or KV according to patient size, use of iterative reconstruction technique. Findings: Moderate enlargement cardiac contour with pulmonary edema at the lung bases Moderate loculated right pleural fluid with air densities, consider empyema Small left pleural fluid Cirrhosis, liver irregular in contour Gallstones Spleen is not enlarged No pancreatic or adrenal mass. Mild ascites No hydronephrosis renal or ureteral calculi Aorta normal size Normal appendix No bowel obstruction Urinary bladder wall is thickened up to 12 mm Prominent osteopenia Impression: Mild heart failure Moderate loculated right pleural fluid with air densities, consider right hemithorax empyema Cirrhosis Mild ascites Cholelithiasis Normal appendix No bowel obstruction
[2024-10-26 17:12] LABS: Basophils # (Auto) 0.1 Thou/mm3 (0.0-0.2); Basophils % (Auto) 1 % (0-2.5); Eosinophils # (Auto) 0.2 Thou/mm3 (0.0-0.5); Eosinophils % (Auto) 1 % (0-10); Hematocrit 33.4 % (41.0-53.0); Hemoglobin 10.9 g/dL (13.5-16.0); Immature Granulocytes Auto 0.04 Thou/mm3 (0.00-0.00); Lymphocytes # (Auto) 1.4 Thou/mm3 (1.0-4.8); Lymphocytes % (Auto) 13 % (10-50); Mean Corpuscular HGB Conc 32.6 g/dl (31.0-37.0); Mean Corpuscular Hemoglobin 33.4 pg (25.0-35.0); Mean Corpuscular Volume 103 fL (80-100); Monocytes # (Auto) 0.9 Thou/mm3 (0.0-0.8); Monocytes % (Auto) 9 % (0-12); Neutrophils # (Auto) 7.8 Thou/mm3 (1.8-7.7); Neutrophils % (Auto) 75 % (37-80); Nucleated Red Blood Cell # 0.00 Thou/mm3 (0.00-0.00); Nucleated Red Blood Cell % 0 /100 WBC (0); Platelet Count 297 Thou/mm3 (140-440); RDW Standard Deviation 54.1 fL (35.1-43.9); Red Blood Count 3.26 Miln/mm3 (4.50-5.90); White Blood Count 10.4 Thou/mm3 (3.8-10.6)
[2024-10-26 17:17] LABS: PSA Medicare Annual Scrn 1.45 ng/mL (0-4.00)
[2024-10-26 17:19] LABS: Alanine Aminotransferase 16 U/L (10-49); Albumin, Serum 4.1 gm/dL (3.4-4.8); Albumin/Globulin Ratio 1.2 (1.2-2.2); Alkaline Phosphatase 93 U/L (46-116); Anion Gap 10 (7-16); Aspartate Amino Transferase 21 U/L (0-34); BUN/Creatinine Ratio 15 Ratio (12-20); Bilirubin,Total 0.9 mg/dL (0.3-1.2); Blood Urea Nitrogen 26 mg/dL (9-23); Calcium 9.5 mg/dL (8.3-10.6); Calcium (Corrected) 9.5 mg/dL (8.5-10.1); Carbon Dioxide 26.4 mMol/L (20.0-31.0); Chloride 103 mMol/L (98-107); Creatinine (Component) 1.7 mg/dL (0.6-1.3); Globulin 3.3 gm/dL (2.3-3.5); Glucose 114 mg/dL (74-106); Osmolality,Calculated 283 (275-295); Potassium 4.1 mMol/L (3.4-5.1); Sodium 139 mMol/L (136-145); Total Protein 7.4 gm/dL (5.7-8.2); eGFR 43 See Note
== END | disposition home or self-care (01) ==
LOC: CDIM 15:21 → CCTX 15:27 → COPL 16:10
PROVIDERS: PCP Internal Medicine; Referring Provider Internal Medicine; Visit Provider Radiology Diagnostic Radiology
DX: I11.0 Hypertensive heart disease with heart failure (principal); I50.9 Heart failure, unspecified; I25.10 Atherosclerotic heart disease of native coronary artery without angina pectoris; C44.209 Unspecified malignant neoplasm of skin of left ear and external auricular canal; I50.22 Chronic systolic (congestive) heart failure; J90 Pleural effusion, not elsewhere classified; Z12.5 Encounter for screening for malignant neoplasm of prostate; K74.60 Unspecified cirrhosis of liver; R18.8 Other ascites; K80.20 Calculus of gallbladder without cholecystitis without obstruction
CPT/HCPCS: 36415; 71046; 74176; 80053; 84153; 85025; G0103

== ENCOUNTER 2024-11-06 17:34 | Inpatient (IN) | payer MEDICARE, BC, SELFPAY ==
[2024-11-06 18:12] VITALS: BP 116/72; PULSE 100; RESP 18; TEMP 36.8; O2SAT 95
--- NOTE | 2024-11-06 19:41 | PD.EDSOB ---
ED SOB =RME/HPI General Chief Complaint: General Adult/Misc Complain Stated Complaint: WATER ON R) LUNG, NEEDS TO BE DRAINED Time Seen by Provider: 11/06/24 19:22 Arrival date/time: 11/06/24 17:34 RME / HPI RME / HPI Narrative: DR. SEQUEIRA MAIN ED EVALUATION: Patient with hx recurrent plueral effusion presenting with progressive shortness of breath x 3 days. No fever, chills, or chest pain. Denies productive cough. Also notes difficulty breathing while in supine position. PMH: CHF, Reccurent Pleural Effusion, Previous CAD/Cardiomyopathy with ejection fraction of 30% PSH: Cardiac stent placement Social: Denies tobacco, alcohol, and illicit drug use. Related Data Allergies Allergy/AdvReac Type Severity Reaction Status Date / Time No Known Allergies Allergy Verified 11/06/24 17:37 Review of Systems Review of Systems Systems Reviewed: All systems reviewed, normal except as documented Past Medical History Past Medical History CARDIAC: Positive Cardiac Disorders, Myocardial Infarction (STEMI) and Congestive Heart Failure MUSCULOSKELETAL: Positive Musculoskeletal Disorders and Fractures (Left Femur) OTHER HISTORY: Positive Cancer Surgical History SURGICAL: Positive Coronary Stent (7YEARS AGO total of [address]) ED Exam Narrative Physical exam: GEN. APPEARANCE: The patient is alert awake oriented X-3 in no distress, lying down comfortably, does not look ill/toxic. Patient has good eye contact. Patient is cooperative. VITALS: All vitals were reviewed and the pulse ox is 95% on room air which is normal according to my interpretation. HEENT: Normocephalic, atraumatic. Pupils are equal and reactive. Oral mucosa is moist. Patent Nares NECK: Supple, nontender, no thyromegaly, no meningismus, with JVD, no step offs CHEST: Symmetrical, atraumatic, and with equal expansion , Nontender on palpation no deformity and no crepitus. CARDIOVASCULAR: Heart regular rhythm no murmur or gallop rub or extra beats, loud/harsh systolic murmur heard best at LLSB, no radiation to the carotids. LUNGS: Diminished lung sounds R > L with symmetrical chest rise. No laboring tachypnea or wheezing. No intercostal subcostal retraction. No rales and no rhonchi. ABDOMEN: Soft, flat, nontender to palpation, no guarding or rebound tenderness. There are no abnormal masses palpated. Active and normal bowel sounds. EXTREMITIES: Nontender. No edema. No cyanosis. Patient is able to move all 4 extremities well, with full ROM and good CSM. SKIN: Warm and dry, no jaundice or rashes noted. MUSCULOSKELETAL: No lubar or midline bony tenderness. There is no CVA tenderness. No paraspinal muscle spasm or tenderness. NEURO: Patient is AHMADI x 4, Cranial nerves II through XII grossly intact. There is no focal neurologic deficits noted. GCS is 15, PNS and [employer] appear grossly intact. PSYCHIATRIC: Patient is in normal mood and affect, cooperative, no SI or HI or hallucinations. Course Course Course Narrative: CXR was ordered for determining the etiology of shortness of breath. Quality Measures none Orders Category Date Time Status COVID-19 Screening Questionnaire NOW Care 11/06/24 22:32 Active EKG (ED ONLY) *Do not use* NOW Care 11/06/24 19:45 Completed Insert IV STAT Care 11/06/24 22:29 Active CXRP [XR chest 1V portable] Routine Exams 11/07/24 06:00 Ordered EKG (ED Only) Stat Exams 11/06/24 19:45 Draft XR chest 1V portable Stat Exams 11/06/24 21:46 Completed XR chest 2V Stat Exams 11/06/24 19:45 Completed B-Type Natriuretic Peptide Stat Lab 11/06/24 19:59 Completed CBC Stat Lab 11/06/24 19:59 Completed Comprehensive Metabolic Panel Stat Lab 11/06/24 19:59 Completed Troponin I Stat Lab 11/06/24 19:59 Completed Lidocaine 1% 20 ml [Xylocaine 1% 20 ML] Med 11/06/24 21:14 Discontinued 20 ml INFL X1 ONE Morphine* Inj Med 11/06/24 21:51 Discontinued 4 mg IVP X1 ONE Ondansetron Inj [Zofran Inj] Med 11/06/24 21:51 Discontinued 4 mg IVP X1 ONE Vital Signs Vital signs: Vital Signs Temperature 98.3 F 11/06/24 18:12 Pulse Rate 100 11/06/24 18:12 Respiratory Rate 18 11/06/24 18:12 Blood Pressure 116/72 11/06/24 18:12 Pulse Oximetry (%) 95 11/06/24 18:12 Oxygen Delivery Method Room Air 11/06/24 18:12 Shortness of Breath / Dyspnea MDM Narrative MDM Narrative:: Scribe Attestation: I, Esmemarciano Jordan, am scribing for and in the presence of Dr. Sequeira. Provider Notation: Although this document has been carefully reviewed, there may still be some phonetic and other typographical errors. These errors are purely grammatical due to imperfections in the software program and should not be construed in any way to compromise the substance of the patient's medical care during this visit. Laboratory markers demonstrate normal WBC of 9.3, stable anemia with hemoglobin of 11.4. No thrombocytopenia and coag profile normal. Serum chemistries demonstrate stable renal insufficiency, makedly elevated BNP of 2600. Troponin I elevated at 0.04. Ekg sinus rythm 99 bpm, occassional PVC's, no acute ST segment elevations, axis is normal, evidence of previous anterior wall MT. CXR demonstrates right moderate pleural effusion, cardiomegally. Patient underwent right thoracentesis with return of 800 cc of serosanguinous fluid. Fluid sent for analysis. Patient report overall subjective improvement. Post-procedure CXR demonstrates right basillar pneumothorax 5-10% total in volume. Case discussed with hospitalist who agrees to admit. Final diagnosis includes exacerbation of CHF, recurrent right pleural effusion s/p thoracentesis, and iatrogenic pneumothorax. Patient will be admitted to telemetry to further montitor, evaluate, and for treatment. Patient data External records reviewed:: [facility] previous records (Reviewed prior ED records from 10/07/24. Patient was seen for Pleural effusion.) Clinical information provided by:: patient Social determinants that could affect healthcare access:: none Patient has the following chronic illnesses:: CHF How is presenting disease/condition affected by chronic disease/condition?: exacerbated by Evaluation data The following diagnostics were reviewed and interpreted by me:: lab results, radiology exam(s) and EKG tracing(s) (EKG shows sinus rhythm of 99 bpm, occasional PVC's, no acute ST segment elevations, axis is normal, evidence of previous anterior wall MT, per my interpretation.) Lab and/or radiology exams considered but not ordered:: None Interpretation Summary: RADIOLOGY Chest X-Ray: Findings: Mild heart failure pattern Mild to moderate enlargement cardiac contour. Prominent vascular congestion with moderate right pleural effusion The osseous structures are intact Impression: Mild chronic heart failure pattern with moderate right pleural effusion Chest X-Ray: Findings: Pneumothorax inferior to the right lung, estimated 20% No shifted mediastinum Enlarged cardiac contour with prominent vascular congestion Impression: 20% right pneumothorax, recommend short-term follow-up chest imaging Medications / Prescriptions Medications or Prescriptions considered but not ordered:: None Medication administrations:: Medication Administration History Acetaminophen (Acetaminophen 325 Mg Tablet) 650 mg PO Q6H PRN PRN Reason: PAIN SCALE 1-3 (mild Stop: 12/06/24 23:02 Acetaminophen (Acetaminophen 325 Mg Tablet) 650 mg PO Q6H PRN PRN Reason: Fever >100.4 Stop: 12/06/24 23:02 Hydrocodone Bitart/Acetaminophen (Hydrocodone/Apap 10/325 Tab) 1 tab PO Q4HR PRN PRN Reason: PAIN SCALE 7-10 (Severe Stop: 11/11/24 23:02 Ondansetron HCl (Ondansetron Inj 2 Mg/Ml Inj 2 Ml) 4 mg IVP Q6H PRN; Protocol PRN Reason: NAUSEA OR VOMITING Stop: 12/06/24 23:02 Oxycodone/Acetaminophen (Oxycodone/Apap 5/325 Tablet) 1 tab PO Q6H PRN PRN Reason: PAIN SCALE 4-6 (Moderate Stop: 11/11/24 23:02 Pantoprazole Sodium (Pantoprazole Inj 40 Mg Vial) 40 mg IVP QDAY EVETTE Stop: 12/07/24 08:59 Discontinued Medications Furosemide (Furosemide Inj 10 Mg/Ml 4ml Vial) 40 mg IVP X1 ONE Stop: 11/07/24 00:05 Last Admin: 11/07/24 01:21 Dose: 40 mg Documented By: COLIN Lidocaine HCl (Lidocaine Hcl 1% 20 Ml Vial) 20 ml INFL X1 ONE Stop: 11/06/24 21:15 Last Admin: 11/06/24 22:31 Dose: Not Given Documented By: JORGE A Non-Admin Reason: Cancelled by Provider Morphine Sulfate (Morphine Sulf Inj 4 Mg/Ml Vial) 4 mg IVP X1 ONE Stop: 11/06/24 21:52 Last Admin: 11/06/24 22:18 Dose: 4 mg Documented By: COLIN Ondansetron HCl (Ondansetron Inj 2 Mg/Ml Inj 2 Ml) 4 mg IVP X1 ONE; Protocol Stop: 11/06/24 21:52 Last Admin: 11/06/24 22:31 Dose: 4 mg Documented By: COLIN See above if any Consultations Consultation(s) initiated? (list below): Yes Consultation #1 (Physician, Specialty, Details): Discussed with Dr. Maria for admission. Reviewed the patient?s HPI, PMHx, lab and/or radiology results. Discussed treatment plan. Will consult an admission to the hospitalist. Time: 23:00 Diagnosis Shortness of Breath Differential Diagnosis: congestive heart failure, community acquired pneumonia and pulmonary embolism Most likely diagnosis given after review of the tests above:: Exacerbation of CHF, Recurrent right pleural effusion s/p thoracentesis, and iatrogenic pneumothorax. Admission Indicated Admission indicated?: indicated Explain why admission is indicated or not indicated:: Exacerbation of CHF, Recurrent right pleural effusion s/p thoracentesis, and iatrogenic pneumothorax. Admission Request Was there a request for admission?: Yes Admission Attestation Admission request attestation: Discussed case with [] from Hospitalist service regarding admission. Discussed patients ED course, exam findings, labs, and radiology results. The Hospitalist [agrees,declines] to accept the patient for admission. Disposition Plan Disposition Plan: Admit Discharge Plan Plan Patient Disposition: Admit Acute Care w/in Hospital Problem List Clinical Impression: Acute exacerbation of CHF (congestive heart failure), Iatrogenic pneumothorax, Recurrent right pleural effusion
--- NOTE | 2024-11-06 19:45 | XR_ITS ---
Examination: PA lateral chest 2 views Technique: Upright PA lateral chest 2 views Date and time: November 06, 2024, 2145 hrs., Comparison October 26, 2024 Indications: Chest pain shortness of breath today. Findings: Mild heart failure pattern Mild to moderate enlargement cardiac contour. Prominent vascular congestion with moderate right pleural effusion The osseous structures are intact Impression: Mild chronic heart failure pattern with moderate right pleural effusion
--- NOTE | 2024-11-06 19:45 | EKG_ITS ---
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1955 Requested By: Gus Thompson Order Number: [id number] Reading MD: Gus Thompson Measurements Intervals [place] Rate: 99 P: 53 MT: 193 QRS: 58 QRSD: 109 T: 25 QT: 345 QTc: 443 Interpretive Statements SINUS RHYTHM WITH FREQUENT VENTRICULAR PREMATURE COMPLEXES POSSIBLE LEFT ATRIAL ENLARGEMENT [-0.1mV P-WAVE IN V1/V2] POSSIBLE ANTERIOR MYOCARDIAL INFARCTION , OF INDETERMINATE AGE [30 ms Q WAVE IN V3/V4, OR R < 0.2 mV IN V4] POSSIBLE INFERIOR MYOCARDIAL INFARCTION , PROBABLY OLD [30 ms Q WAVE IN II/aVF] Compared to ECG 10/07/2024 18:59:09 Ventricular premature complex(es) now present Myocardial infarct finding still present /store/S0/[id number]/ecg/[id number].pdf
[2024-11-06 20:09] LABS: Basophils # (Auto) 0.1 Thou/mm3 (0.0-0.2); Basophils % (Auto) 1 % (0-2.5); Eosinophils # (Auto) 0.2 Thou/mm3 (0.0-0.5); Eosinophils % (Auto) 2 % (0-10); Hematocrit 36.1 % (41.0-53.0); Hemoglobin 11.4 g/dL (13.5-16.0); Immature Granulocytes Auto 0.02 Thou/mm3 (0.00-0.00); Lymphocytes # (Auto) 1.7 Thou/mm3 (1.0-4.8); Lymphocytes % (Auto) 18 % (10-50); Mean Corpuscular HGB Conc 31.6 g/dl (31.0-37.0); Mean Corpuscular Hemoglobin 32.9 pg (25.0-35.0); Mean Corpuscular Volume 104 fL (80-100); Monocytes # (Auto) 0.9 Thou/mm3 (0.0-0.8); Monocytes % (Auto) 10 % (0-12); Neutrophils # (Auto) 6.4 Thou/mm3 (1.8-7.7); Neutrophils % (Auto) 69 % (37-80); Nucleated Red Blood Cell # 0.00 Thou/mm3 (0.00-0.00); Nucleated Red Blood Cell % 0 /100 WBC (0); Platelet Count 280 Thou/mm3 (140-440); RDW Standard Deviation 58.2 fL (35.1-43.9); Red Blood Count 3.46 Miln/mm3 (4.50-5.90); White Blood Count 9.3 Thou/mm3 (3.8-10.6)
[2024-11-06 20:29] LABS: Alanine Aminotransferase 44 U/L (10-49); Albumin, Serum 4.5 gm/dL (3.4-4.8); Albumin/Globulin Ratio 1.2 (1.2-2.2); Alkaline Phosphatase 93 U/L (46-116); Anion Gap 12 (7-16); Aspartate Amino Transferase 48 U/L (0-34); BUN/Creatinine Ratio 15 Ratio (12-20); Bilirubin,Total 0.8 mg/dL (0.3-1.2); Blood Urea Nitrogen 29 mg/dL (9-23); Calcium 9.7 mg/dL (8.3-10.6); Calcium (Corrected) 9.7 mg/dL (8.5-10.1); Carbon Dioxide 23.8 mMol/L (20.0-31.0); Chloride 100 mMol/L (98-107); Creatinine (Component) 1.9 mg/dL (0.6-1.3); Estimated Creatinine Clearance 39.1 mL/min (>60); Globulin 3.7 gm/dL (2.3-3.5); Glucose 97 mg/dL (74-106); Osmolality,Calculated 277 (275-295); Potassium 3.6 mMol/L (3.4-5.1); Sodium 136 mMol/L (136-145); Total Protein 8.2 gm/dL (5.7-8.2); Troponin I 0.042 ng/mL (0.0-0.045); eGFR 37 See Note
[2024-11-06 20:34] LABS: B-Type Natriuretic Peptide 2619 pg/mL (0-100)
--- NOTE | 2024-11-06 21:46 | XR_ITS ---
Examination: AP chest single view Technique: AP portable upright chest single view Date and time: October 29, 20240 hrs., Comparison October 29, 20241945 hrs. Indications: Post thoracentesis Findings: Pneumothorax inferior to the right lung, estimated 20% No shifted mediastinum Enlarged cardiac contour with prominent vascular congestion Impression: 20% right pneumothorax, recommend short-term follow-up chest imaging
--- NOTE | 2024-11-06 21:52 | ESOP_ITS ---
PROCEDURES: Procedure Date / Time 11/06/24 0417 Thoracentesis Indication(s): symptomatic Pleural Effusion Informed consent obtained from: patient Time out done, and the following verified: correct patient, side and site, procedure, patient position and implants and/or equipment Ultrasound used: Yes Procedure location: rt. post pleural space Amount pleural fluid removed (ml): 750 EBL(ml): 1 Procedure comment: The patient was positioned upright with the right arm raised above the head to facilitate access to the pleural space. The right side of the chest was cleaned with an antiseptic solution, and sterile drapes were applied. After appropriate local anesthesia with 1% lidocaine was administered to the skin and underlying tissues, a 16-gauge thoracentesis needle was inserted into the 7th intercostal space, just posterior to the mid-axillary line. Approximately [insert volume] of pleural fluid was successfully aspirated using sterile technique. The needle was then removed, and pressure was applied to the insertion site to minimize bleeding, followed by the application of a sterile dressing. The patient tolerated the procedure well without any immediate complications, and a post- procedure chest X-ray was obtained, which showed no signs of pneumothorax. Pleural fluid was sent for analysis. Patient tolerated procedure well. There was 20% PTX seen on post-procedure XR. Patient will be admitted under for observation.
[2024-11-06] MEDS: MORPHINE SULF INJ 4 MG/ML VIAL IVP (22:18)
[2024-11-06] MEDS: ONDANSETRON INJ 2 MG/ML INJ 2 ML 4 MG IVP (22:31)
--- NOTE | 2024-11-06 23:37 | ESHP_ITS ---
Documentation for date of: 11/06/24 [facility] History of Present Illness History of present illness: This is a 69-year-old male with PMHx of HFrEF 30-35%, CAD s/p 4 stents 5 years ago, CKD 3B, recurrent right-sided pleural effusion, presenting to the ED with 3 days of worsening sob. Symptoms started gradually over the last 3 days and have worsen since prompting him to come to the hospital. Initially he was having sob with exertion, however he now has it at wrest. Reports feeling like he can't catch his breath all day. He has a history of recurrent right-sided pleural effusion and usually comes to the ED for frequent thoracentesis. He has a history of HFrEF with EEF around 30%, and sees Dr. Barrett. His last appt was 1.5 weeks ago and he has been on the same regimen of diuretics since. Reports dequan LE swelling that has been stable over the last year or so. He also reports significant unintentional weight loss (about 30 kg) since 1 year but no fever, chills, or night sweats. In July 2024 pleural fluid analysis and cytology showed exudative fluid negative for malignancy. 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 Never followed up with a pulmonolagist regarding the pleural effusion. Denies fever, chills, headache, fall or trauma, focal neurological deficits, chest pain, palpiation, GI or urinary symptoms. Past Medical History: * As above. Past Surgical History: * Cardiac stents, orthopedic surgery of E Medications: * LASIX 40 mg daily, SPIRONOLACTONE 25 mg daily, IBUPROFEN 600 mg q.8h. PRN for pain Allergies: * NKA. 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 , has 2 children, lives with at home. * Denies alcohol, drug or tobacco use. * No recent travel or sick exposure. ED Course: * Afebrile, BP 116/72, HR 100, satting well on room air. * Negative COVID test. * CBC at baseline with Hgb 11.4, no leukocytosis. * CBC remarkable for BNP 2619, slightly elevated AST at 48, ALT 44, ALP 93. * Renal function near baseline with creatinine 1.9, BUN 29, and GFR of 37. * Normal troponin and electrolytes. * CXR showed mild chronic heart failure with moderate right pleural effusion. * EKG showed sinus rhythm without acute ST changes. In ED, he underwent thoracentesis of right pleural effusion with 750 cc serous fluid removed. Subsequently, he developed 20% pneumothorax. Although maintaining good saturation on room air, without chest pain or shortness of breath. Reason for admission: Admitted under observation for monitoring of 20% right basal pneumothorax. Exam Vital Signs Temp Pulse Resp BP Pulse Ox O2 Del Method 98.3 F 100 18 116/72 95 Room Air 11/06/24 18:12 11/06/24 18:12 11/06/24 18:12 11/06/24 18:12 11/06/24 18:12 11/06/24 18:12 Narrative Exam GENERAL * Normal appearing make, NAD, on room air HEENT * NCAT.?ANUSHA. Oral mucosa is moist. Patent Nares NECK * Supple, nontender, no JVD. CHEST * RRR, no m/g/r * CTAB, no w/r/r, symmetrical expansion. ABDOMEN * Soft, flat, nontender. No guarding/rebound tenderness/masses. * Bowel sounds presents EXTREMITIES * 2+ bilateral lower extremity edema. SKIN * Warm and dry, no jaundice/rashes. NEUROMUSCULAR * No lumbar or midline, no CVA, no paraspinal muscle spasm or tenderness. * Moves all 4 extremities well, with full ROM and good CSM. * AHMADI x4, CN II-XII grossly intact. * No focal neurologic deficits. PSYCHIATRY * Normal mood and affect, cooperative, no SI or HI or hallucinations. Results: Labs 11/07/24 04:49 11/07/24 04:49 Labs: Short CBC 11/06/24 Range/Units 19:59 WBC 9.3 (3.8-10.6) Thou/mm3 Hgb 11.4 L (13.5-16.0) g/dL Hct 36.1 L (41.0-53.0) % Plt Count 280 (140-440) Thou/mm3 BMP 11/06/24 19:59 Sodium 136 Potassium 3.6 Chloride 100 Carbon Dioxide 23.8 BUN 29 H Creatinine 1.9 H Glucose 97 Calcium 9.7 Cardiac Enzymes 11/06/24 Range/Units 19:59 Troponin I 0.042 (0.0-0.045) ng/mL Liver Function 11/06/24 Range/Units 19:59 Total Bilirubin 0.8 (0.3-1.2) mg/dL AST 48 H (0-34) U/L ALT 44 (10-49) U/L Alkaline Phosphatase 93 (46-116) U/L Albumin 4.5 (3.4-4.8) gm/dL Quality Measures Quality Measures VTE prophylaxis Advance care planning discussed with:: patient Medications Home Medications and Allergies Home Medications ?Medication ?Instructions ?Recorded ?Confirmed ?Type furosemide 40 mg tablet 40 mg PO QDAY 11/07/2411/07 History ibuprofen 600 mg tablet 600 mg PO Q8H PRN pain 11/0711/07/24 History spironolactone 25 mg tablet 25 mg PO QDAY 11/07/24 History Allergies Allergy/AdvReac Type Severity Reaction Status Date / Time No Known Allergies Allergy Verified 11/06/24 17:37 Visit Medications Acetaminophen (Acetaminophen 325 Mg Tablet) 650 mg PO Q6H PRN PRN Reason: PAIN SCALE 1-3 (mild Stop: 12/06/24 23:02 Acetaminophen (Acetaminophen 325 Mg Tablet) 650 mg PO Q6H PRN PRN Reason: Fever >100.4 Stop: 12/06/24 23:02 Hydrocodone Bitart/Acetaminophen (Hydrocodone/Apap 10/325 Tab) 1 tab PO Q4HR PRN PRN Reason: PAIN SCALE 7-10 (Severe Stop: 11/11/24 23:02 Ondansetron HCl (Ondansetron Inj 2 Mg/Ml Inj 2 Ml) 4 mg IVP Q6H PRN; Protocol PRN Reason: NAUSEA OR VOMITING Stop: 12/06/24 23:02 Oxycodone/Acetaminophen (Oxycodone/Apap 5/325 Tablet) 1 tab PO Q6H PRN PRN Reason: PAIN SCALE 4-6 (Moderate Stop: 11/11/24 23:02 Pantoprazole Sodium (Pantoprazole Inj 40 Mg Vial) 40 mg IVP QDAY EVETTE Stop: 12/07/24 08:59 Discontinued Medications Lidocaine HCl (Lidocaine Hcl 1% 20 Ml Vial) 20 ml INFL X1 ONE Stop: 11/06/24 21:15 Last Admin: 11/06/24 22:31 Dose: Not Given Morphine Sulfate (Morphine Sulf Inj 4 Mg/Ml Vial) 4 mg IVP X1 ONE Stop: 11/06/24 21:52 Last Admin: 11/06/24 22:18 Dose: 4 mg Ondansetron HCl (Ondansetron Inj 2 Mg/Ml Inj 2 Ml) 4 mg IVP X1 ONE; Protocol Stop: 11/06/24 21:52 Last Admin: 11/06/24 22:31 Dose: 4 mg Assessment & Plan Plan This is a 69-year-old male with PMHx of HFrEF 30-35%, CAD s/p 4 stents 5 years ago, recurrent right-sided pleural effusion, presenting to ED with sob. He had right thoracentesis performed in ED with residual 20% PNX seen on CXR, subsequently admitted for observation. Acute on chronic hypoxic respiratory failure Right sided penumothorax Recurrent right sided pleural effusion Presents with 3 days of shortness of breath. CXR showed right-sided pleural effusion. Thoracentesis removed 750 cc of pleural fluids, with subsequent 20% pneumothorax of right basal lung. He has multiple ED visit for pleural effusion often requiring drainage. Last pleural analysis and pathology was done in 07/2024 suggesting non-malignant exudative effusion. Currently afebrile, satting well on room air. ? Continue oxygen through nasal cannula ? Serial chest x-ray ? Follow-up pleural cytology to rule out malignancy HFrEF 30-35% Chronic heart failure, echo was done earlier this year showed ejection fraction of 30-35%. He has bilateral 2+ lower extremity edema, which patient states this is baseline for him. Last appointment with cardiology was 1.5 weeks ago, no changes medications. Reports compliance with medications. No signs of symptoms of CHF exacerbation otherwise. Received LASIX 40 mg IV x 1. ? Continue home LASIX 40 mg IV daily ? Continue home SPIRONOLACTONE 25 mg daily ? Maintain K>4.0 and Mag>2.0 ? Will need outpatient GDMT optimization CKD stage IIIb Renal function appear baseline with creatinine 1.9, BUN 29 and GFR of 37. ? Renally dose meds, avoid overdiuresis and NEPHROTOXINS ? Daily CMP Chronic anemia Hgb 11.4 and MCV 104 around baseline. No s/s of abnormal bleed. ? Daily labs ? Transfused if Hgb < 8.0 ? Recommended outpatient work-up for anemia Health maintenance Diet: Cardiac diet GI prophylaxis: PROTONIX DVT prophylaxis: HEPARIN subcu Antibiotics: Not indicated CODE STATUS: Full code Disposition: Admitted under observation for 20% pneumothorax. Case was discussed with attending physician, Dr. Enciso. Eduardo Maria, PGY II This document was transcribed using voice recognition technology. Minor inaccuracies may be present. Attending Provider Attestation/Addendum After examination of the patient and review of the clinical data I feel that this patient needs admission to the hospital for further treatment/evaluation. Plan of care discussed with patient and is in agreement. I Luther Enciso MD, attest that I was physically present for martinez portions of evaluation, and examined patient, labs and imagings and plan of care were discussed with IM residents team, and I agree with the findings and plans documented above.
[2024-11-06 23:46] LABS: LDH (Lactate Dehydrogenase) 296 U/L (120-246); Triglycerides 65 mg/dL (30-150)
[2024-11-07] VITALS (17 sets, daily range): BP systolic 74–109; BP diastolic 57–79; PULSE 67–90; RESP 16–97; TEMP 36.1–36.7; O2SAT 95–98; BMI 25.7
[2024-11-07] MEDS: FUROSEMIDE INJ 10 MG/ML 4ML VIAL 40 MG IVP ×2 (01:21→08:51)
[2024-11-07 02:13] LABS: Pleural Fluid WBC 70 /cmm
[2024-11-07 02:16] LABS: Amylase,Pleural Fluid 39 IU/L; Glucose,Pleural Fluid 74 mg/dL; LDH,Pleural Fluid 149 IU/L; Protein Total,Pleural Fluid 3.0 g/dL
[2024-11-07 02:18] LABS: Pleural Fluid Appearance Hazy; Pleural Fluid Color Straw; Pleural Fluid Mononuclear 99 %; Pleural Fluid Polynuclear 1 %; Pleural Fluid RBC 4000 /cmm
[2024-11-07 05:44] LABS: Basophils # (Auto) 0.0 Thou/mm3 (0.0-0.2); Basophils % (Auto) 1 % (0-2.5); Eosinophils # (Auto) 0.0 Thou/mm3 (0.0-0.5); Eosinophils % (Auto) 0 % (0-10); Hematocrit 33.1 % (41.0-53.0); Hemoglobin 10.6 g/dL (13.5-16.0); Immature Granulocytes Auto 0.03 Thou/mm3 (0.00-0.00); Lymphocytes # (Auto) 1.0 Thou/mm3 (1.0-4.8); Lymphocytes % (Auto) 14 % (10-50); Mean Corpuscular HGB Conc 32.0 g/dl (31.0-37.0); Mean Corpuscular Hemoglobin 33.3 pg (25.0-35.0); Mean Corpuscular Volume 104 fL (80-100); Monocytes # (Auto) 0.6 Thou/mm3 (0.0-0.8); Monocytes % (Auto) 8 % (0-12); Neutrophils # (Auto) 5.6 Thou/mm3 (1.8-7.7); Neutrophils % (Auto) 77 % (37-80); Nucleated Red Blood Cell # 0.00 Thou/mm3 (0.00-0.00); Nucleated Red Blood Cell % 0 /100 WBC (0); Platelet Count 248 Thou/mm3 (140-440); RDW Standard Deviation 58.3 fL (35.1-43.9); Red Blood Count 3.18 Miln/mm3 (4.50-5.90); White Blood Count 7.3 Thou/mm3 (3.8-10.6)
[2024-11-07 06:27] LABS: Alanine Aminotransferase 40 U/L (10-49); Albumin, Serum 3.9 gm/dL (3.4-4.8); Albumin/Globulin Ratio 1.3 (1.2-2.2); Alkaline Phosphatase 74 U/L (46-116); Anion Gap 12 (7-16); Aspartate Amino Transferase 39 U/L (0-34); BUN/Creatinine Ratio 19 Ratio (12-20); Bilirubin,Total 0.9 mg/dL (0.3-1.2); Blood Urea Nitrogen 34 mg/dL (9-23); Calcium 9.2 mg/dL (8.3-10.6); Calcium (Corrected) 9.3 mg/dL (8.5-10.1); Carbon Dioxide 25.9 mMol/L (20.0-31.0); Chloride 101 mMol/L (98-107); Creatinine (Component) 1.8 mg/dL (0.6-1.3); Estimated Creatinine Clearance 41.3 mL/min (>60); Globulin 3.0 gm/dL (2.3-3.5); Glucose 100 mg/dL (74-106); Magnesium 2.1 mg/dL (1.6-2.6); Osmolality,Calculated 285 (275-295); Phosphorous 4.3 mg/dL (2.4-5.1); Potassium 3.7 mMol/L (3.4-5.1); Sodium 139 mMol/L (136-145); Total Protein 6.9 gm/dL (5.7-8.2); eGFR 40 See Note
--- NOTE | 2024-11-07 07:20 | XR_ITS ---
Examination: AP chest single view Technique: Portable upright AP chest single view Date and time: November 07, 2024, 0754 hrs., Comparison 11/06/2024 2148 hrs. Indications: Pneumothorax postthoracentesis yesterday Findings: Stable pneumothorax inferior to the right lung, estimated 20% Mild to moderate enlargement cardiac contour Mild fluid capping the upper portion of the lung No shifted mediastinum Impression: Stable pneumothorax inferior to the right lung
[2024-11-07] MEDS: HEPARIN SOD INJ 5000 UNIT/ML VIAL SC (08:52)
[2024-11-07] MEDS: SPIRONOLACTONE 25 MG TABLET PO (08:54)
--- NOTE | 2024-11-07 09:15 | PC.SS ---
Follow up note: Repeat chest xray. Pt is possible dc tomorrow if improves.
--- NOTE | 2024-11-07 11:37 | ECHO_ITS ---
Transthoracic Echo Report Ht (in): 72 Wt (lb): 189 Exam Location: 357 Status: Inpatient Medical Billing Assistant: Neva Glaser Indications: Procedure Performed: BP: 100 / 67 HR: 91 MEASUREMENTS (Male / Female) Normal Values 2D ECHO LV Diastolic Diameter PLAX 6.1 cm 4.2 - 5.9 / 3.9 - 5.3 cm LV Systolic Diameter PLAX 4.6 cm IVS Diastolic Thickness 0.8 cm 0.6 - 1.0 / 0.6 - 0.9 cm LVPW Diastolic Thickness 1.1 cm 0.6 - 1.0 / 0.6 - 0.9 cm LV Relative Wall Thickness 0.3 LVOT Diameter 2.0 cm LA Volume Index 49.4 cm?/m? 16 - 28 cm?/m? Ascending Aorta Diameter 3.5 cm M-MODE AV Cusp Separation MM 1.3 cm DOPPLER AV Peak Velocity 105.0 cm/s AV Peak Gradient 4.4 mmHg AV Mean Gradient 2.0 mmHg AV Velocity Time Integral 16.3 cm LVOT Peak Velocity 58.3 cm/s LVOT Peak Gradient 1.4 mmHg LVOT Velocity Time Integral 11.3 cm LVOT Cardiac Index 1541.5 cm?/min?m? AV Area Cont Eq vti 2.2 cm? AV Area Cont Eq pk 1.7 cm? MR ERO PISA 2.3 cm? LV E' Lateral Velocity 14.0 cm/s LV E' Septal Velocity 8.1 cm/s TR Peak Velocity 283.3 cm/s TR Peak Gradient 32.1 mmHg PV Peak Velocity 53.5 cm/s PV Peak Gradient 1.1 mmHg FINDINGS Left Ventricle Normal left ventricular size and wall thickness.Hypokinetic basal anterior septal wall motion. Hypokinetic mid-anterior septal wall motion. There is grade II diastolic dysfunction of the left ventricle (pseudonormal filling pattern). . The ejection fraction is visually estimated at 40-45 %. Right Ventricle The right ventricle is normal in size and systolic function. The estimated right ventricular systolic pressure, 51 mmHg with RAP 8. Severe PHTN. Left Atrium The left atrial cavity size is severely increased. Right Atrium The right atrial cavity size is severely increased. Atrial Septum The interatrial septum appears normal with no evidence of a shunt. Aorta The aorta is normal by two-dimensional, color flow and Doppler interrogation. Mitral Valve Mitral annular calcification. [id number] mitral regurgitation. Aortic Valve Aortic valve sclerosis without stenosis Tricuspid Valve The tricuspid valve is normal by two-dimensional, color flow and Doppler interrogation. There is moderate to severe tricuspid valve regurgitation. Pulmonic Valve The pulmonic valve is not well visualized. There is no significant pulmonic valve regurgitation. Vessels The pulmonary artery appears normal. IVC mildly dilated measuring 2.4 cm Pericardium The pericardium is normal by two-dimensional imaging. There is no significant pericardial effusion. CONCLUSIONS Indication: HFrEF Normal left ventricular size and wall thickness.Hypokinetic basal anterior and mid-anterior septal wall motion. Grade II diastolic dysfunction. The ejection fraction is visually estimated at 40-45 %. The right ventricle is normal in size and systolic function. RVSP 51mmHg with RAP 8. Severe PHTN Severely dilated LA and RA MAC Moderate- severe MR and TR IVC mildly dilated measuring 2.4 cm Grupo Barrett (Electronically Signed) Final Date: 08 November 2024 09:06
--- NOTE | 2024-11-07 11:48 | ESPR_ITS ---
Documentation for date of: 11/07/24 Subjective Subjective Interval history: Patient was admitted overnight for worsening shortness of breath. Was requiring oxygen at home, does not use at baseline. S/p right thoracentesis, removed about 750 cc, post procedural CXR showed 20% pneumothorax. Stable at 20% on repeat CXR this AM. This morning, patient had some mild pain on inspiration but otherwise no complaints. Ambulating well on his own. Will repeat chest XR tomorrow morning, if improved will discharge. Reached out to patient's food service assistant Dr. Barrett regarding patient's cardiac history. Reports that last echo was done in 12/2023 with EF 20%, will repeat echo. Unclear why patient was not on GDMT but started on metoprolol 50 mg daily and entresto 0.5 tab BID. Will continue patient's Lasix and spiranolactone as he continues to have pitting edema bilaterally on exam. Strict I's & O's. Anticipate discharge tomorrow after echo taken. Exam Vital Signs Temp Pulse Resp BP Pulse Ox O2 Del Method 97.2 F 88 18 100/67 96 Room Air 11/07/24 11:28 11/07/24 11:28 11/07/24 11:28 11/07/24 11:28 11/07/24 11:28 11/07/24 11:28 Narrative Exam Physical Exam General: Awake and in no acute distress. Conversational and non-toxic appearing. HEENT: Normocephalic, atraumatic, mucous membranes moist. Heart: Regular rate and rhythm, normal S1 and S2, no murmurs. Lungs: Clear to auscultation with no wheezing or crackles. Abdomen: Soft, nondistended, nontender, positive bowel sounds. No guarding or rebound tenderness. Neurologic: Alert and oriented x3, no gross neurological deficit, and patient able to move all 4 extremities. Extremities: 2+ pitting edema bilaterally. Skin: No rash or ecchymoses. Objective Labs 11/08/24 04:59 11/08/24 04:59 Labs: Laboratory Results - last 24 hr 11/06/24 11/06/24 11/07/24 19:59 23:00 04:49 WBC 9.3 7.3 RBC 3.46 L 3.18 L Hgb 11.4 L 10.6 L Hct 36.1 L 33.1 L MCV 104 H 104 H MCH 32.9 33.3 MCHC 31.6 32.0 RDW Std Deviation 58.2 H 58.3 H Plt Count 280 248 D Neut % (Auto) 69 77 Lymph % (Auto) 18 14 [place] % (Auto) 10 8 Eos % (Auto) 2 0 Baso % (Auto) 1 1 Neut # (Auto) 6.4 5.6 Lymph # (Auto) 1.7 1.0 [place] # (Auto) 0.9 H 0.6 Eos # (Auto) 0.2 0.0 Baso # (Auto) 0.1 0.0 Immature Gran # (Auto) 0.02 H 0.03 H Absolute Nucleated RBC 0.00 0.00 Immature Gran % 0 0 Nucleated RBC % 0 0 Sodium 136 139 Potassium 3.6 3.7 Chloride 100 101 Carbon Dioxide 23.8 25.9 Anion Gap 12 12 BUN 29 H 34 H Creatinine 1.9 H 1.8 H Estim Creat Clear Calc 39.1 L 41.3 L eGFR 37 L 40 L BUN/Creatinine Ratio 15 19 Glucose 97 100 Calculated Osmolality 277 285 Calcium 9.7 9.2 Corrected Calcium 9.7 9.3 Phosphorus 4.3 Magnesium 2.1 Total Bilirubin 0.8 0.9 AST 48 H 39 H ALT 44 40 Alkaline Phosphatase 93 74 D Lactate Dehydrogenase 296 H Troponin I 0.042 B-Natriuretic Peptide 2619 H* Total Protein 8.2 6.9 Albumin 4.5 3.9 D Globulin 3.7 H 3.0 Albumin/Globulin Ratio 1.2 1.3 Triglycerides 65 Pleural Color Straw Pleural Appearance Hazy Pleural WBC 70 Pleural RBC 4000 Pleural Polynuclear WBC 1 Pleural Mononuclear WBC 99 Pleural Total Protein 3.0 Pleural LDH 149 Pleural Glucose 74 Pleural Amylase 39 Quality Measures Quality Measures VTE prophylaxis Advance care planning discussed with:: patient Assessment & Plan Assessment Current Active Medications: Generic Name Dose Route Start Last Admin Trade Name Freq PRN Reason Stop Dose Admin Acetaminophen 650 mg 11/06/24 23:03 Acetaminophen 325 Mg Tablet PO 12/06/24 23:02 Q6H PRN PAIN SCALE 1-3 (mild Acetaminophen 650 mg 11/06/24 23:03 Acetaminophen 325 Mg Tablet PO 12/06/24 23:02 Q6H PRN Fever >100.4 Hydrocodone Bitart/Acetaminophen 1 tab 11/06/24 23:03 Hydrocodone/Apap 10/325 Tab PO 11/11/24 23:02 Q4HR PRN PAIN SCALE 7-10 (Severe Furosemide 40 mg 11/07/24 09:00 11/07/24 08:51 Furosemide Inj 10 Mg/Ml 4ml Vial IVP 12/07/24 08:59 40 mg QDAY EVETTE Administration Heparin Sodium (Porcine) 5,000 unit 11/07/24 09:00 11/07/24 08:52 Heparin Sod Inj 5000 Unit/Ml Vial SC 11/21/24 08:59 5,000 unit BID EVETTE Administration Metoprolol Succinate 25 mg 11/07/24 11:45 Metoprolol Succinate Xl 25 Mg Tabcr PO 12/07/24 11:44 QDAY EVETTE Ondansetron HCl 4 mg 11/06/24 23:03 Ondansetron Inj 2 Mg/Ml Inj 2 Ml IVP 12/06/24 23:02 Q6H PRN NAUSEA OR VOMITING Protocol Oxycodone/Acetaminophen 1 tab 11/06/24 23:03 Oxycodone/Apap 5/325 Tablet PO 11/11/24 23:02 Q6H PRN PAIN SCALE 4-6 (Moderate Pantoprazole Sodium 40 mg 11/07/24 09:00 11/07/24 08:52 Pantoprazole Inj 40 Mg Vial IVP 12/07/24 08:59 40 mg QDAY EVETTE Administration Sacubitril/Valsartan 0.5 tab 11/07/24 11:45 Sacubitril 24 Mg/Valsartan 26 Mg Tablet PO 12/07/24 11:44 BID EVETTE Spironolactone 25 mg 11/07/24 09:00 11/07/24 08:54 Spironolactone 25 Mg Tablet PO 12/07/24 08:59 25 mg QDAY EVETTE Administration Plan Patient is a 69-year-old male with PMHx of HFrEF 20% (12/2023), CAD s/p 4 stents 5 years ago, recurrent right-sided pleural effusion, who presented on 11/06 for worsening shortness of breath s/p right thoracentesis performed in ED with residual 20% PNX seen on CXR, subsequently admitted for observation. #Acute on chronic hypoxic respiratory failure #Right sided pneumothorax s/p thoracentesis #Recurrent right sided pleural effusion Presented with 3 days of worsening shortness of breath. CXR showed right-sided pleural effusion. Thoracentesis removed 750 cc of pleural fluids, with subsequent 20% pneumothorax of right basal lung. Per chart review, patient has had multiple ED visit for pleural effusion often requiring drainage. Patient reports had another one 3 weeks ago at [facility]. Last pleural analysis and pathology in 07/2024 suggest non-malignant exudative effusion; however others were transudative. Likely secondary to HFrEF versus chemical exposure (reports working with [employer] in the past). Currently afebrile, satting well on room air. Light's criteria: transudative effusion Plan: ? Oxygen prn ? Repeat CXR tomorrow morning ? Follow-up pleural gram stain and culture #HFrEF EF 20% (12/2023) Per food service assistant Dr. Barrett, EF 20% on last echo in 12/2023. On exam, has bilateral 2+ lower extremity edema, which patient states fluctuates Last appointment with cardiology was 1.5 weeks ago, no changes medications. Reports compliance with medications. Plan: ? Lasix 40 mg IV daily ? Spironolactone 25 mg daily ? Maintain K>4.0 and Mag>2.0 ? Metoprolol 50 mg daily - Entresto 1/2 tab BID - CTM BP - Pending echo CKD stage IIIb Renal function appear baseline with creatinine 1.9, BUN 29 and GFR of 37. ? Renally dose meds - Avoid NEPHROTOXINS ? Daily CMP Chronic anemia Hgb 11.4 and MCV 104 around baseline. No s/s of abnormal bleed. ? Daily labs - Follow up iron panel, folate and B12 ? Transfused if Hgb < 8.0 ? Recommended outpatient work-up for anemia Health Maintenance Disposition: medsurg, observation DVT prophylaxis: heparin GI prophylaxis: protonix Diet: cardiac CODE STATUS: full Patient plan of care was discussed with the attending physician, Dr. Dodson. Lalita Brito, PGY-1 Attending Provider Attestation/Addendum I have discussed and was present for the essential components of the history, physical examination, diagnosis, and treatment plan with the resident. I agree with the patient's care as documented by the resident and amended herein by me. Ignacio Dodson DO. Although this document has been carefully reviewed, there may still be some phonetic and other typographical errors. These errors are purely grammatical due to imperfections in the software program and should not be construed in any way to compromise the substance of the patient's medical care during this visit.
[2024-11-07] MEDS: METOPROLOL SUCCINATE XL 25 MG TABCR PO (12:58)
--- NOTE | 2024-11-07 15:53 | PC.SS ---
SS met with patient regarding his d/c plan. Pt is alert/oriented. Pt was admitted for Pneumothorax. Pt confirmed demographic and contact information is correct on facesheet. Pt resides with . Pt ambulates utilizing a cane. Pt is ok with all ADLs. Patient?s pharmacy of choice is [facility] on [address] Pt named his , Claudine Jaimes medical decision maker if he is unable. SS provided verbal d/c options for home or SNF. Patient?s choice is to return home upon d/c. Pt states not diabetic and is not on dialysis. Pt followed up with PCP 1 week ago. Pt also follows up with with Dr. Barrett (heart doctor). Family (, dtr, or granddtr) will provide transportation. D/C plan: Return home Next of Kin: Claudine Jaimes, , phone# [phone] PCP: Dr. Ronni Boyle Address: [address]
--- NOTE | 2024-11-07 19:35 | PC.NURSE ---
bp=74/60- Lowered head of bed as much as py tolerated. Elevated leg of bed.
--- NOTE | 2024-11-07 19:36 | PC.NURSE ---
CHEMOTHERAPIST called for symptomatic low bp- migraine headache, pain to posterior lower head, pain level 9/10, bp=74/60, map=64.
[2024-11-07 19:59] LABS: Iron 50 mcg/dL (65-175); Percent Iron Saturation 19 % (20-55); Total Iron Binding Capacity 254 mcg/dL (250-425); Unsaturated Iron Binding 204 (225-295)
[2024-11-07] MEDS: ACETAMINOPHEN 325 MG TABLET 650 MG PO (20:00)
[2024-11-07 20:03] LABS: Folate 15.80 ng/mL (>5.38); Vitamin B12 1195 pg/mL (211-911)
--- NOTE | 2024-11-07 21:20 | PD.RESEVENT ---
Documentation for date of: 11/07/24 Event Note Event Note: Rapid rapid Response was called at 7:37 pm for hypotension. The RN called a rapid response due to a BP of 74/60 with a MAP of 65. Prior to the response, the patient had recently been started on Entresto, metoprolol and furosemide. Upon evaluation, the patient was observed resting comfortable in bed, reporting mild shortness of breath but no other complaints. Saturating 96% on 6 L nasal cannula. Physical examination was unremarkable, except for bilateral pitting edema from initial presentation. Will continue to monitor vitals. Patient seen and assessed under supervision of attending physician Dr.Alhalaibeh Aby Tavera MD PGY-1, Internal Medicine Please note: this document was transcribed using voice recognition technology; minor inaccuracies may be present.
[2024-11-08] VITALS (85 sets, daily range): BP systolic 69–102; BP diastolic 49–75; PULSE 63–81; RESP 0–99; TEMP 36.1–36.9; O2SAT 71–100
[2024-11-08] MEDS: MIDODRINE 5 MG TABLET PO ×3 (00:37→07:36)
--- NOTE | 2024-11-08 05:01 | PC.NURSE ---
bp=90/64, map=72- seen and examined by Dr. Liang cole/ orders made and carried out.
[2024-11-08 05:47] LABS: Basophils # (Auto) 0.1 Thou/mm3 (0.0-0.2); Basophils % (Auto) 1 % (0-2.5); Eosinophils # (Auto) 0.0 Thou/mm3 (0.0-0.5); Eosinophils % (Auto) 0 % (0-10); Hematocrit 35.9 % (41.0-53.0); Hemoglobin 11.6 g/dL (13.5-16.0); Immature Granulocytes Auto 0.04 Thou/mm3 (0.00-0.00); Lymphocytes # (Auto) 1.7 Thou/mm3 (1.0-4.8); Lymphocytes % (Auto) 18 % (10-50); Mean Corpuscular HGB Conc 32.3 g/dl (31.0-37.0); Mean Corpuscular Hemoglobin 33.6 pg (25.0-35.0); Mean Corpuscular Volume 104 fL (80-100); Monocytes # (Auto) 1.3 Thou/mm3 (0.0-0.8); Monocytes % (Auto) 14 % (0-12); Neutrophils # (Auto) 6.2 Thou/mm3 (1.8-7.7); Neutrophils % (Auto) 67 % (37-80); Nucleated Red Blood Cell # 0.00 Thou/mm3 (0.00-0.00); Nucleated Red Blood Cell % 0 /100 WBC (0); Platelet Count 250 Thou/mm3 (140-440); RDW Standard Deviation 57.4 fL (35.1-43.9); Red Blood Count 3.45 Miln/mm3 (4.50-5.90); White Blood Count 9.2 Thou/mm3 (3.8-10.6)
--- NOTE | 2024-11-08 06:00 | XR_ITS ---
Examination: AP chest single view Technique: AP portable upright chest single view Date and time: November 08, 2024, 0534 hrs., Comparison 11/07/2024 Indications: History right pneumothorax post thoracentesis Findings: Stable pneumothorax inferior to the right lung, estimated 20% Mild enlargement cardiac contour Moderate vascular congestion Fluid been the right lung, mild Prominent osteopenia Impression: Stable pneumothorax inferior to the right lung
[2024-11-08 06:28] LABS: Alanine Aminotransferase 95 U/L (10-49); Albumin, Serum 3.9 gm/dL (3.4-4.8); Albumin/Globulin Ratio 1.3 (1.2-2.2); Alkaline Phosphatase 70 U/L (46-116); Anion Gap 11 (7-16); Aspartate Amino Transferase 120 U/L (0-34); BUN/Creatinine Ratio 16 Ratio (12-20); Bilirubin,Total 1.0 mg/dL (0.3-1.2); Blood Urea Nitrogen 38 mg/dL (9-23); Calcium 9.7 mg/dL (8.3-10.6); Calcium (Corrected) 9.8 mg/dL (8.5-10.1); Carbon Dioxide 27.2 mMol/L (20.0-31.0); Chloride 101 mMol/L (98-107); Creatinine (Component) 2.4 mg/dL (0.6-1.3); Estimated Creatinine Clearance 31.0 mL/min (>60); Globulin 3.0 gm/dL (2.3-3.5); Glucose 93 mg/dL (74-106); Magnesium 2.1 mg/dL (1.6-2.6); Osmolality,Calculated 286 (275-295); Phosphorous 4.6 mg/dL (2.4-5.1); Potassium 4.3 mMol/L (3.4-5.1); Sodium 139 mMol/L (136-145); Total Protein 6.9 gm/dL (5.7-8.2); eGFR 28 See Note
--- NOTE | 2024-11-08 07:31 | PD.RESEVENT ---
Documentation for date of: 11/08/24 Event Note Event Note: Rapid response called at 0725 for low blood pressure of 76/54 with MAP of 61. Patient was alert and oriented, protecting airway, conversational laying in bed comfortably. Was started on Entresto half tablet and metoprolol yesterday afternoon. Had another rapid called last night for similar pressures. Given midodrine 5 x2, given another midodrine 5mg this morning. BP improved to 86/63. Had repeat rapid response around 1045 for persistent hypotension s/p midodrine 5 mg x1. Blood pressure 81/58 with MAP in low 60s. Patient endorsed lightheadedness but denies worsening shortness of breath and chest pain. On exam, heart was regular rate and rhythm, mild crackles on lung exam and otherwise able to protect his airway. Continues to have 2+ pitting edema of lower extremities bilaterally. Ordered EKG, troponin. CXR from earlier this mroning shows mild enlargement cardiac contour and moderate vascular congestion. Pneumothorax stable at 20%. Troponin elevated at 0.184. In setting of transaminitis and new BOO on morning labs, likely in cardiogenic shock. Was transferred to ICU for dobutamine drip.
--- NOTE | 2024-11-08 07:44 | PC.NURSE ---
Called a rapid on this patient d/t a low Bp of 76/54 at 0725. Checked blood glucose and got 97 at 0731. Midrodrine 5 mg was given and patient has no complaints. No other new orders given.
[2024-11-08] MEDS: HEPARIN SOD INJ 5000 UNIT/ML VIAL SC ×2 (09:45→21:07)
--- NOTE | 2024-11-08 10:11 | EKG_ITS ---
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
[2024-11-08] MEDS: RINGERS LACTATED 500 ML 250 ML 999 ML IV (10:39)
--- NOTE | 2024-11-08 10:48 | ESCONSULT_ITS ---
<Statement entered by Diego Stern MD - 11/08/24 17:29> Senior Resident Attestation: I supervised/discussed management plan with exercise science internship physician Dr. Couch, and was involved in the care of this patient. I personally saw and examined the patient and discussed the assessment and plan with the entire medicine team, including my attending. I agree with the assessment and plan as documented. Patient is 69 years old male with past medical history of HFrEF 30-35%, CAD s/p 4 stents 5 years ago, CKD 3B, recurrent right-sided pleural effusion initially presented to [facility] on 11/06 complaining of worsening shortness of breath, was found to have CHF exacerbation and was started on diuretics. Echo was done showing systolic heart failure with ejection fraction of 40 - 45% and grade 2 diastolic dysfunction. Yesterday patient was started on metoprolol and Entresto as a part of his GDMT, however patient had 2 rapid responses called overnight due to hypotension when he was given midodrine and 2 more rapid responses in the morning due to the same problem, his MAP was 59?61. Decision was made to upgrade patient to ICU for further management. NICOM showed patient is fluid responsive. Patient was given 250cc of IVF with improvement in his blood pressure, he was able to maintain MAP above 65. His GDMT was held including Entresto and metoprolol. Bedside echo showed ejection fraction of around 20%, in comparison to echo yesterday showing ejection fraction 40-45%. Cardiology wants to initiate transfer for LVAD. At this moment patient does not require any vasopressors, he is able to protect airway and his mentation is intact therefore will be on nasal cannula for oxygen delivery. Will monitor patient overnight and if stable will downgrade him in the morning for continuation of care. Patient's care was discussed with attending physician, Dr. Riggins. Diego Stern MD PGY-3. HPI Data of Consult Requesting Physician: Benjamin Dodson DO Admitting Provider: Luther Enciso MD Attending Provider: Benjamin Dodson DO Primary Care Provider: Ronni Boyle MD Consult Narrative History of present illness: Patient is a 69 year old male with past medical history of HFrEF 30-35%, CAD s/p 4 stents 5 years ago, CKD 3B, and recurrent right-sided pleural effusion who initially presented to [facility] on 11/06 complaining of worsening shortness of breath; he was found to have CHF exacerbation and was started on diuretics. Echo was done showing systolic heart failure with ejection fraction of 40 - 45% and grade 2 diastolic dysfunction. Yesterday patient was started on metoprolol and Entresto as a part of his GDMT, however patient had 2 rapid responses called overnight due to hypotension when he was given midodrine and 2 more rapid responses in the morning due to the same problem, his MAP was 59?61. Decision was made to upgrade patient to ICU for further management. NICOM showed patient is fluid responsive. Patient was given 250cc of IVF with improvement in his blood pressure, he was able to maintain MAP above 65. His GDMT was held including Entresto and metoprolol. Bedside echo showed ejection fraction of around 20%, in comparison to echo yesterday showing ejection fraction 40-45%. Cardiology wants to initiate transfer for LVAD. At this moment patient does not require any vasopressors, he is able to protect airway and his mentation is intact therefore will be on nasal cannula for oxygen delivery. Will monitor patient overnight and if stable will downgrade him in the morning for continuation of care. cc:: cc: Benjamin Dodson, Review of Systems Review of Systems Systems Reviewed: All systems reviewed, normal except as documented Exam Vital Signs Temp Pulse Resp BP Pulse Ox O2 Del Method O2 Flow Rate 97.3 F 68 18 93/66 98 Nasal Cannula 4 11/08/24 07:51 11/08/24 07:51 11/08/24 07:51 11/08/24 08:14 11/08/24 07:51 11/08/24 07:51 11/08/24 07:51 Narrative Exam Physical Exam: General: A/O x3, WDWN elderly male in no acute distress. Skin: Warm, dry, intact, no obvious rash. Head: Normocephalic, atraumatic. Eyes: PERRL, EOMI. Anicteric, vision grossly intact. Ears: No ear pain, no ear discharge, Hearing grossly intact. Nose: No nasal discharge. Mouth/Throat: Oral mucosa moist. No obvious lesions in oropharynx. Neck: Neck supple, non-tender, no cervical lymphadenopathy. Cardiovascular: Quiet heart sounds. Regular rate and rhythm, no murmur, no JVD or carotid bruits. +S1/S2. Respiratory: Slightly tachypneic with somewhat shallow breaths. Bilateral lungs are clear to auscultation, respirations unlabored, no crackles, no wheezing. No accessory muscle use. Gastrointestinal: Palpable, reducible mass between 10 o clock and 11 o clock from umbilicus. Some tenderness to deep palpation of umbilicus but otherwise nontender. Soft, non-distended. No guarding or rebound tenderness. Normal/hyperactive bowel sounds. Extremities: Symmetrical, no significant deformities. Bilateral 3+ pitting edema up to knees and most significant at the level of the feet and ankles. Radial pulse present bilaterally. Neuro: No focal deficits observed. Conversant, moving all extremities. No overt cerebellar signs/incoordination. Psychiatric: Cooperative, appropriate affect. Results Labs 11/09/24 04:36 11/09/24 04:36 Labs: Short CBC 11/08/24 Range/Units 04:59 WBC 9.2 (3.8-10.6) Thou/mm3 Hgb 11.6 L (13.5-16.0) g/dL Hct 35.9 L (41.0-53.0) % Plt Count 250 (140-440) Thou/mm3 BMP 11/08/24 04:59 Sodium 139 Potassium 4.3 D Chloride 101 Carbon Dioxide 27.2 BUN 38 H Creatinine 2.4 H D Glucose 93 Calcium 9.7 Liver Function 11/08/24 Range/Units 04:59 Total Bilirubin 1.0 (0.3-1.2) mg/dL AST 120 H (0-34) U/L ALT 95 H (10-49) U/L Alkaline Phosphatase 70 (46-116) U/L Albumin 3.9 (3.4-4.8) gm/dL Quality Measures Quality Measures VTE prophylaxis Advance care planning discussed with:: patient Medications Home Medications and Allergies Home Medications ?Medication ?Instructions ?Recorded ?Confirmed ?Type furosemide 40 mg tablet 40 mg PO QDAY 11/07/2411/07 History ibuprofen 600 mg tablet 600 mg PO Q8H PRN pain 11/0711/07/24 History spironolactone 25 mg tablet 25 mg PO QDAY 11/07/24 History Allergies Allergy/AdvReac Type Severity Reaction Status Date / Time No Known Allergies Allergy Verified 11/06/24 17:37 Visit Medications Acetaminophen (Acetaminophen 325 Mg Tablet) 650 mg PO Q6H PRN PRN Reason: PAIN SCALE 1-3 (mild Stop: 12/06/24 23:02 Last Admin: 11/07/24 20:00 Dose: 650 mg Acetaminophen (Acetaminophen 325 Mg Tablet) 650 mg PO Q6H PRN PRN Reason: Fever >100.4 Stop: 12/06/24 23:02 Hydrocodone Bitart/Acetaminophen (Hydrocodone/Apap 10/325 Tab) 1 tab PO Q4HR PRN PRN Reason: PAIN SCALE 7-10 (Severe Stop: 11/11/24 23:02 Furosemide (Furosemide Inj 10 Mg/Ml 4ml Vial) 40 mg IVP QDAY [facility] On Hold: 11/07/24 19:44 Stop: 12/07/24 08:59 Last Admin: 11/07/24 08:51 Dose: 40 mg Heparin Sodium (Porcine) (Heparin Sod Inj 5000 Unit/Ml Vial) 5,000 unit SC BID [facility] Stop: 11/21/24 08:59 Last Admin: 11/08/24 09:45 Dose: 5,000 unit Metoprolol Succinate (Metoprolol Succinate Xl 25 Mg Tabcr) 25 mg PO QDAY [facility] On Hold: 11/07/24 19:44 Stop: 12/07/24 11:44 Last Admin: 11/07/24 12:58 Dose: 25 mg Midodrine (Midodrine 5 Mg Tablet) 10 mg PO TID [facility] Stop: 12/08/24 13:59 Ondansetron HCl (Ondansetron Inj 2 Mg/Ml Inj 2 Ml) 4 mg IVP Q6H PRN; Protocol PRN Reason: NAUSEA OR VOMITING Stop: 12/06/24 23:02 Oxycodone/Acetaminophen (Oxycodone/Apap 5/325 Tablet) 1 tab PO Q6H PRN PRN Reason: PAIN SCALE 4-6 (Moderate Stop: 11/11/24 23:02 Pantoprazole Sodium (Pantoprazole Inj 40 Mg Vial) 40 mg IVP QDAY [facility] Stop: 12/07/24 08:59 Last Admin: 11/08/24 09:45 Dose: 40 mg Sacubitril/Valsartan (Sacubitril 24 Mg/Valsartan 26 Mg Tablet) 0.5 tab PO BID [facility] On Hold: 11/07/24 19:44 Stop: 12/07/24 11:44 Last Admin: 11/07/24 12:58 Dose: 0.5 tab Spironolactone (Spironolactone 25 Mg Tablet) 25 mg PO QDAY [facility] On Hold: 11/07/24 19:45 Stop: 12/07/24 08:59 Last Admin: 11/07/24 08:54 Dose: 25 mg Discontinued Medications Furosemide (Furosemide Inj 10 Mg/Ml 4ml Vial) 40 mg IVP X1 ONE Stop: 11/07/24 00:05 Last Admin: 11/07/24 01:21 Dose: 40 mg Lactated Ringer's (Lactated Ringers) 250 mls @ 999 mls/hr IV .Q16M ONE Stop: 11/08/24 10:25 Last Admin: 11/08/24 10:39 Dose: 999 mls/hr Lidocaine HCl (Lidocaine Hcl 1% 20 Ml Vial) 20 ml INFL X1 ONE Stop: 11/06/24 21:15 Last Admin: 11/06/24 22:31 Dose: Not Given Midodrine (Midodrine 5 Mg Tablet) 5 mg PO X1 ONE Stop: 11/08/24 00:28 Last Admin: 11/08/24 00:37 Dose: 5 mg Midodrine (Midodrine 5 Mg Tablet) 5 mg PO X1 ONE Stop: 11/08/24 04:48 Last Admin: 11/08/24 05:04 Dose: 5 mg Midodrine (Midodrine 5 Mg Tablet) 5 mg PO X1 ONE Stop: 11/08/24 07:30 Last Admin: 11/08/24 07:36 Dose: 5 mg Morphine Sulfate (Morphine Sulf Inj 4 Mg/Ml Vial) 4 mg IVP X1 ONE Stop: 11/06/24 21:52 Last Admin: 11/06/24 22:18 Dose: 4 mg Ondansetron HCl (Ondansetron Inj 2 Mg/Ml Inj 2 Ml) 4 mg IVP X1 ONE; Protocol Stop: 11/06/24 21:52 Last Admin: 11/06/24 22:31 Dose: 4 mg Potassium Chloride (Potassium Chloride 20 Meq Tabcr) 40 meq PO X1 ONE Stop: 11/07/24 03:56 Last Admin: 11/07/24 04:16 Dose: 40 meq Potassium Chloride (Potassium Chloride 20 Meq Tabcr) 20 meq PO X1 ONE Stop: 11/07/24 08:17 Last Admin: 11/07/24 08:53 Dose: 20 meq Assessment & Plan Plan Patient is 69 years old male with past medical history of HFrEF 30-35%, CAD s/p 4 stents 5 years ago, CKD 3B, recurrent right-sided pleural effusion initially presented to [facility] on 11/06 complaining of worsening shortness of breath, was found to have CHF exacerbation and was started on diuretics. Echo was done showing systolic heart failure with ejection fraction of 40 - 45% and grade 2 diastolic dysfunction. Yesterday patient was started on metoprolol and Entresto as a part of his GDMT, however patient had 2 rapid responses called overnight due to hypotension when he was given midodrine and 2 more rapid responses in the morning due to the same problem, his MAP was 59?61. Decision was made to upgrade patient to ICU for further management. NICOM showed patient is fluid responsive. Patient was given 250cc of IVF with improvement in his blood pressure, he was able to maintain MAP above 65. His GDMT was held including Entresto and metoprolol. Bedside echo showed ejection fraction of around 20%, in comparison to echo yesterday showing ejection fraction 40-45%. Cardiology wants to initiate transfer for LVAD. At this moment patient does not require any vasopressors, he is able to protect airway and his mentation is intact therefore will be on nasal cannula for oxygen delivery. Will monitor patient overnight and if stable will downgrade him in the morning for continuation of care. NEURO #No active problems CARDIO #Refractory hypotension, likely 2/2 synergistic BP-lowering effects of diuretics and antihypertensives Patient, whose heart seems quite weak, was started on all GDMT medications at once which seemed to cause his BP to plummet through a combination of volume depletion (Lasix and spironolactone), decreased cardiac contractility (metoprolol), and systemic vasodilation (Entresto) Dx: -NICOM w/ PLR suggested fluid responsiveness, given 250 mL of fluid, BP better now Rx: -Continue PO midodrine 10 mg TID -After being given a small bolus of fluid, patient has not required any Levophed or dobutamine to maintain MAP > 60 (has actually been easily clearing the parameter of MAP > 65 in the setting of significantly reduced EF) #HFrEF (exacerbation) Dx: -11/07 echo showed normal left ventricular size and wall thickness, hypokinetic basal anterior and mid-anterior septal wall motion. Grade II diastolic dysfunction. The ejection fraction is visually estimated at 40-45%. The right ventricle is normal in size and systolic function. RVSP 51 mmHg with RAP 8. Severe PHTN. Severely dilated LA and RA. MAC. Moderate to severe MR and TR. IVC mildly dilated measuring 2.4 cm -11/08 Bedside echo showed poor EF 15-20% -11/06 BNP 2619 -Trop 0.184 (likely Type II NSTEMI, demand ischemia) Rx: -Dobutamine drip is not indicated in patient's with ongoing hypotension (should only be initiated if Levophed is insufficient as dobutamine results in further hypotension at first) -Dr. Barrett recommended transfer to [facility] for LVAD placement and possibility of heart transplant PULM #Acute on chronic hypoxic respiratory failure #Recurrent right sided pleural effusions likely 2/2 ex vacuo pneumothorax, s/p thoracentesis Patient has a history of repeat right-sided pleural effusions requiring repeat therapeutic thoracenteses, with one being done this admission that removed 750 cc's of pleural fluid (transudative) and the most recent one prior being done at [facility] 3 weeks ago The resulting 20% stable pneumothorax was likely not caused by the thoracentesis but rather is an already extant ex vacuo pneumothorax (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 and does not expand to fill the vacuum) creating a chronic space of negative pressure that constantly draws fluid out of the lung vasculature This theory is supported by the fact that this pleural effusion occurs at the same place every time (right lung base) and that the patient's pneumothorax does not change locations Rx: -Continue therapeutic thoracenteses as needed -Supplemental oxygen as needed GI #Transaminitis AST 39 -> 120, ALT 49 -> 95 Possibly 2/2 hypotension and liver hypoperfusion Rx: -Maintain BP within goal parameters (MAP >60) #Constipation Last BM 2 days ago, complains of constipation (on [place]) Rx: -Bowel regimen, senna or docusate NEPHRO #BOO on CKD Stage IIIB Creatinine 1.8 -> 2.4, BUN 34 -> 38 (baseline creatinine 1.9) Likely 2/2 a combination of volume depletion from excessive diuresis and hypotension -> renal hypoperfusion -Maintain BP within goal parameters (MAP >60) -Gentle fluid resuscitation if seemingly hypovolemic and fluid responsive -Avoid nephrotoxins -Renally dose medications HEME #Macrocytic anemia Hgb 10.6 -> 11.6, B12 high, folate WNL, iron panel suggestive of iron deficiency Rx: -Transfuse if hemoglobin < 8 ENDO #No active problems ID #No active problems Disposition: Admitted to ICU due to recurrent hypotension resulting in multiple rapids being called (and possible need for dobutamine) DVT prophylaxis: SubQ Heparin 5000 BID GI prophylaxis: IV Protonix 40 mg qD Diet: Cardiac Alejandra: Present Lines: Peripheral IV Antibiotics: None CODE STATUS: FULL Patient plan of care was discussed with the attending photographic double, Dr. Riggins. Philip Couch, DO Internal Medicine, PGY-1 Attending Provider Attestation/Addendum pt seen and examined with resident, agree with above. in brief this is a 69yo M admitted to the ICU after 3 rapid responses for hypotension on the floor. Pt has a h/o HFrEF and was not on BB/ACEI or Entresto at home. He was started on meds in house and then developed symptomatic hypotension with SOB and dizziness. He was given a small 250cc bolus with improvement in his BP and sxs. A bedside echo showed a dilated LV with decreased EF guestimated at ~20% with a dilated IVC. PLR showed pt was fluid responsive. Official echo from a day ago shows significant pulmonary HTN with tricuspid regurg. d/w cardiology who was contemplating transfer for LVAD. In the ICU he has not required vasopressors. He also is noted to have an ex vacuo pneumo on his CXR which is stable and was also noted on CXR from october 07. case d/w ICU team and floor team d/w cardiology labs, imaging, records reviewed ~70min required for eval, exam, review , intervention, discussion and formulation of POC for this acutely ill pt
[2024-11-08 11:14] LABS: Troponin I 0.184 ng/mL (0.0-0.045)
--- NOTE | 2024-11-08 11:27 | ESPR_ITS ---
<Statement entered by Luc Segura MD - 11/08/24 18:45> I have personally seen and examined the patient, agree with residents assessment and plan Patient plan of care was discussed with the attending physician, Dr. Ivory Segura, PGY2 Documentation for date of: 11/08/24 Subjective Subjective Interval history: Overnight patient had a rapid response at 1937 for hypotension, was given midodrine 5mg x1. Improved for a short course but dropped again requiring another midodrine 5mg x1. Had 2 more rapid responses this morning for persistent hypotension despite midodrine scheduled. Exam Vital Signs Temp Pulse Resp BP Pulse Ox O2 Del Method O2 Flow Rate 97.3 F 72 18 93/66 98 Nasal Cannula 4 11/08/24 07:51 11/08/24 08:00 11/08/24 07:51 11/08/24 08:14 11/08/24 07:51 11/08/24 07:51 11/08/24 07:51 Narrative Exam Physical Exam General: Awake and in no acute distress. Lethargic. HEENT: Normocephalic, atraumatic, mucous membranes moist. Heart: Regular rate and rhythm, normal S1 and S2, no murmurs. Lungs: Clear to auscultation with no wheezing or crackles. Abdomen: Soft, nondistended, nontender, positive bowel sounds. No guarding or rebound tenderness. Neurologic: Alert and oriented x3, no gross neurological deficit, and patient able to move all 4 extremities. Extremities: 2+ pitting edema bilaterally. Skin: No rash or ecchymoses. Objective Labs 11/08/24 04:59 11/08/24 04:59 Labs: Laboratory Results - last 24 hr 11/07/24 11/08/24 11/08/24 04:49 04:59 10:37 WBC 9.2 RBC 3.45 L Hgb 11.6 L Hct 35.9 L MCV 104 H MCH 33.6 MCHC 32.3 RDW Std Deviation 57.4 H Plt Count 250 Neut % (Auto) 67 Lymph % (Auto) 18 [place] % (Auto) 14 H Eos % (Auto) 0 Baso % (Auto) 1 Neut # (Auto) 6.2 Lymph # (Auto) 1.7 [place] # (Auto) 1.3 H Eos # (Auto) 0.0 Baso # (Auto) 0.1 Immature Gran # (Auto) 0.04 H Absolute Nucleated RBC 0.00 Immature Gran % 0 Nucleated RBC % 0 Sodium 139 Potassium 4.3 D Chloride 101 Carbon Dioxide 27.2 Anion Gap 11 BUN 38 H Creatinine 2.4 H D Estim Creat Clear Calc 31.0 L eGFR 28 L BUN/Creatinine Ratio 16 Glucose 93 Calculated Osmolality 286 Calcium 9.7 Corrected Calcium 9.8 Phosphorus 4.6 Magnesium 2.1 Iron 50 L TIBC 254 Iron Saturation 19 L Unsat Iron Binding 204 L Total Bilirubin 1.0 AST 120 H ALT 95 H Alkaline Phosphatase 70 Troponin I 0.184 H* Total Protein 6.9 Albumin 3.9 Globulin 3.0 Albumin/Globulin Ratio 1.3 Vitamin B12 1195 H Folate 15.80 Quality Measures Quality Measures VTE prophylaxis Advance care planning discussed with:: patient Assessment & Plan Assessment Current Active Medications: Generic Name Dose Route Start Last Admin Trade Name Freq PRN Reason Stop Dose Admin Acetaminophen 650 mg 11/06/24 23:03 11/07/24 20:00 Acetaminophen 325 Mg Tablet PO 12/06/24 23:02 650 mg Q6H PRN Administration PAIN SCALE 1-3 (mild Acetaminophen 650 mg 11/06/24 23:03 Acetaminophen 325 Mg Tablet PO 12/06/24 23:02 Q6H PRN Fever >100.4 Hydrocodone Bitart/Acetaminophen 1 tab 11/06/24 23:03 Hydrocodone/Apap 10/325 Tab PO 11/11/24 23:02 Q4HR PRN PAIN SCALE 7-10 (Severe Furosemide 40 mg 11/07/24 09:00 11/07/24 08:51 Furosemide Inj 10 Mg/Ml 4ml Vial IVP 12/07/24 08:59 40 mg On Hold: 11/07/24 19:44 QDAY EVETTE Administration Heparin Sodium (Porcine) 5,000 unit 11/07/24 09:00 11/08/24 09:45 Heparin Sod Inj 5000 Unit/Ml Vial SC 11/21/24 08:59 5,000 unit BID EVETTE Administration Metoprolol Succinate 25 mg 11/07/24 11:45 11/07/24 12:58 Metoprolol Succinate Xl 25 Mg Tabcr PO 12/07/24 11:44 25 mg On Hold: 11/07/24 19:44 QDAY EVETTE Administration Midodrine 10 mg 11/08/24 14:00 Midodrine 5 Mg Tablet PO 12/08/24 13:59 TID EVETTE Ondansetron HCl 4 mg 11/06/24 23:03 Ondansetron Inj 2 Mg/Ml Inj 2 Ml IVP 12/06/24 23:02 Q6H PRN NAUSEA OR VOMITING Protocol Oxycodone/Acetaminophen 1 tab 11/06/24 23:03 Oxycodone/Apap 5/325 Tablet PO 11/11/24 23:02 Q6H PRN PAIN SCALE 4-6 (Moderate Pantoprazole Sodium 40 mg 11/07/24 09:00 11/08/24 09:45 Pantoprazole Inj 40 Mg Vial IVP 12/07/24 08:59 40 mg QDAY EVETTE Administration Sacubitril/Valsartan 0.5 tab 11/07/24 11:45 11/07/24 12:58 Sacubitril 24 Mg/Valsartan 26 Mg Tablet PO 12/07/24 11:44 0.5 tab On Hold: 11/07/24 19:44 BID EVETTE Administration Spironolactone 25 mg 11/07/24 09:00 11/07/24 08:54 Spironolactone 25 Mg Tablet PO 12/07/24 08:59 25 mg On Hold: 11/07/24 19:45 QDAY EVETTE Administration Plan Patient is a 69-year-old male with PMHx of HFrEF 20% (12/2023), CAD s/p 4 stents 5 years ago, recurrent right-sided pleural effusion, who presented on 11/06 for worsening shortness of breath s/p right thoracentesis performed in ED with residual 20% PNX seen on CXR. Upgraded to ICU due to cardiogenic shock, requiring dobutamine drip. #Cardiogenic shock #Elevated troponin likely secondary to demand ischemia in setting of persistent hypotension Had 1 rapid overnight and 2 this morning for persistent hypotension despite midodrine. On labs AST and ALT were elevated and creatinine was also elevated 2.4. Chest x-ray the morning continue to show moderate vascular congestion. Troponin elevated 0.184, likely secondary to demand ischemia from hypotension. Echo showed EF of 40 to 45% however previously was as low as 20%. Patient is still able to protect airway and only endorses lightheadedness and shortness of breath. Plan: ?Patient was upgraded to ICU for dobutamine drip, consider scheduling midodrine 10 mg 3 times daily when downgraded ?Bedside echo in ICU ?Oxygen as needed ?Trend troponin ?CTM CMP #Acute on chronic hypoxic respiratory failure #Right sided pneumothorax s/p thoracentesis #Recurrent right sided pleural effusion Presented with 3 days of worsening shortness of breath. CXR showed right-sided pleural effusion. Thoracentesis removed 750 cc of pleural fluids, with subsequent 20% pneumothorax of right basal lung. Per chart review, patient has had multiple ED visit for pleural effusion often requiring drainage. Patient reports had another one 3 weeks ago at [facility]. Last pleural analysis and pathology in 07/2024 suggest non-malignant exudative effusion; however others were transudative. Likely secondary to HFrEF versus chemical exposure (reports working with [employer] in the past). Currently afebrile, satting well on room air. Repeat CXR 11/08 continues to show stable pneumothorax at 20% with moderate vascular congestion Light's criteria: transudative effusion Plan: ? Oxygen prn ? Follow-up pleural gram stain and culture #HFrEF EF 20% (12/2023) Per watershed coordinator Dr. Barrett, EF 20% on last echo in 12/2023. On exam, has bilateral 2+ lower extremity edema, which patient states fluctuates Last appointment with cardiology was 1.5 weeks ago, no changes medications. Reports compliance with medications. Repeat echo showed EF of 40 to 45% with grade 2 diastolic dysfunction. Hypokinetic basal anterior and mid anterior septal wall motion. Moderate to severe MR and TR. Severely dilated LA and RA. Plan: ? Hold Lasix and spironolactone in setting of hypotension ?Hold metoprolol 50 mg and Entresto half tab twice daily, recommend restarting when able to tolerate ? Maintain K>4.0 and Mag>2.0 - CTM BP #BOO on CKD stage IIIb Renal function appear baseline with creatinine 1.9, BUN 29 and GFR of 37. Creatinine increase in setting of cardiogenic shock Plan: ? Renally dose meds - Avoid NEPHROTOXINS ? Daily CMP Chronic anemia Hgb 11.4 and MCV 104 around baseline. No s/s of abnormal bleed. Iron panel shows low iron and low saturation. Folate elevated. B12 within normal limits. Plan: ? Daily labs ? Transfused if Hgb <7 ? Recommended outpatient work-up for anemia Health Maintenance Disposition: medsurg -> ICU DVT prophylaxis: heparin GI prophylaxis: protonix Diet: cardiac CODE STATUS: full Patient plan of care was discussed with the resident, Dr Segura, and the attending physician, Dr. Dodson. Lalita Brito, PGY-1 Attending Provider Attestation/Addendum I have discussed and was present for the essential components of the history, physical examination, diagnosis, and treatment plan with the resident. I agree with the patient's care as documented by the resident and amended herein by me. Ignacio Dodson, DO. Although this document has been carefully reviewed, there may still be some phonetic and other typographical errors. These errors are purely grammatical due to imperfections in the software program and should not be construed in any way to compromise the substance of the patient's medical care during this visit. Patient seen and evaluated this AM. Rapid response was called early this morning due to hypotension, the patient was administered midodrine however felt fine upon my arrival, he was adamant that he was going to leave by noon today repeat chest x-ray this morning demonstrated a stable right inferior pneumothorax estimated at 20%. Significant labs this moring included a stable hemoglobin 11.6, BUN 38 and a worsening creatinine of 2.4. I initially explained to the patient that we could not discharge the patient today as it was not safe until his kidney function improved and his BP improved. The patient was likely experiencing possible CHF exacerbation considering reported EF was 20% in the past however no recent echo, patient also likely had cardiorenal syndrome. Cardiology was consulted however short time later in the morning, the patient became more altered, short of breath, crackles were heard in his lungs and BP was again soft. We did consult the ICU team for possible vasopressor support the patient was indeed transferred to the ICU for further evaluation and treatment. We did notify cardiology of the events that transpired and held his heart failure medications.
--- NOTE | 2024-11-08 11:27 | PD.IMCONS ---
HPI Data of Consult Requesting Physician: Gabby Riggins MD Primary Care Provider: Ronni Boyle MD Consult Narrative History of present illness: This is a 69-year-old male with PMHx of HFrEF 30-35%, CAD s/p 4 stents 5 years ago, CKD 3B, recurrent right-sided pleural effusion, He was admitted for worsening shortness of breath, shortness of breath even at rest He also complains of bilateral leg swellingsPatient has recurrent right pleural effusion he did undergo thoracentesis 1 more time during this admission He also has chronic renal dysfunction creatinine is 2.4 Today he symptoms got worse blood pressure dropped therefore he was transferred to the ICU Patient was given IV bolus fluid with that blood pressure improved somewhat cc:: cc: Gabby Riggins MD Meds Home Medications and Allergies Home Medications ?Medication ?Instructions ?Recorded ?Confirmed ?Type furosemide 40 mg tablet 40 mg PO QDAY 11/07/24 11/07/24 History ibuprofen 600 mg tablet 600 mg PO Q8H PRN pain 11/07/24 11/07/24 History spironolactone 25 mg tablet 25 mg PO QDAY 11/07/24 11/07/24 History Allergies Allergy/AdvReac Type Severity Reaction Status Date / Time No Known Allergies Allergy Verified 11/06/24 17:37 Exam Vital Signs Temp Pulse Resp BP Pulse Ox O2 Del Method O2 Flow Rate 97.3 F 72 18 93/66 98 Nasal Cannula 4 11/08/24 07:51 11/08/24 08:00 11/08/24 07:51 11/08/24 08:14 11/08/24 07:51 11/08/24 07:51 11/08/24 07:51 Routine HEENT Exam Head: Present normocephalic and atraumatic Eye: Present EOMI and PERRL ENT: Present mucous membranes moist Routine Neck Exam Neck: Present supple and trachea midline Routine Respiratory Exam Respiratory: Present chest non-tender, lungs clear, normal breath sounds and no resp distress Routine Cardiovascular Exam Cardiovascular: Present RRR Routine Abdominal Exam Abdominal: Present soft and normoactive bowel sounds Routine Extremities Exam Extremities: Present full ROM Routine Skin Exam Skin: Present intact, dry and warm Routine Neurological Exam Neurological: Present alert, oriented X3 and CN II-XII intact Routine Psychiatric Exam Psychiatric: Present normal affect and normal thought process Results Labs 11/08/24 04:59 11/08/24 04:59 Labs: Short CBC 11/08/24 Range/Units 04:59 WBC 9.2 (3.8-10.6) Thou/mm3 Hgb 11.6 L (13.5-16.0) g/dL Hct 35.9 L (41.0-53.0) % Plt Count 250 (140-440) Thou/mm3 BMP 11/08/24 04:59 Sodium 139 Potassium 4.3 D Chloride 101 Carbon Dioxide 27.2 BUN 38 H Creatinine 2.4 H D Glucose 93 Calcium 9.7 Cardiac Enzymes 11/08/24 Range/Units 10:37 Troponin I 0.184 H* (0.0-0.045) ng/mL Liver Function 11/08/24 Range/Units 04:59 Total Bilirubin 1.0 (0.3-1.2) mg/dL AST 120 H (0-34) U/L ALT 95 H (10-49) U/L Alkaline Phosphatase 70 (46-116) U/L Albumin 3.9 (3.4-4.8) gm/dL Assessment and Plan Assessment and plan (1) Recurrent right pleural effusion: Status: Acute (2) Acute exacerbation of CHF (congestive heart failure): Status: Acute (3) Coronary artery abnormality: Status: Acute (4) Coronary angioplasty status: Status: Acute (5) Chronic renal disease: Status: Acute Additional Assessment & Plan Additional Plan: Continue patient exam current medicationPatient blood pressure dropped in the morning Responded to IV fluids Patient has severe cardiomyopathy Recurrent right pleural effusion I have discussed with the family regarding patient's cardiac status The past history was also discussed Plan also discussed the possibility of transplant liver and consider LV assist device therapy Patient and family wants time to decide on these issues
[2024-11-08] MEDS: MIDODRINE 5 MG TABLET 10 MG PO ×2 (13:08→21:06)
[2024-11-08] MEDS: POLYETHYLENE GLYCOL 17 GM PACKET PO (13:09)
[2024-11-08 15:40] LABS: Troponin I 0.160 ng/mL (0.0-0.045)
[2024-11-09] VITALS (19 sets, daily range): BP systolic 85–102; BP diastolic 58–72; PULSE 64–80; RESP 0–100; TEMP 36.5–37; O2SAT 94–100; BMI 26.6
[2024-11-09] MEDS: MIDODRINE 5 MG TABLET 10 MG PO (05:04)
[2024-11-09 05:15] LABS: Basophils # (Auto) 0.1 Thou/mm3 (0.0-0.2); Basophils % (Auto) 1 % (0-2.5); Eosinophils # (Auto) 0.1 Thou/mm3 (0.0-0.5); Eosinophils % (Auto) 1 % (0-10); Hematocrit 34.1 % (41.0-53.0); Hemoglobin 11.1 g/dL (13.5-16.0); Immature Granulocytes Auto 0.03 Thou/mm3 (0.00-0.00); Lymphocytes # (Auto) 2.1 Thou/mm3 (1.0-4.8); Lymphocytes % (Auto) 22 % (10-50); Mean Corpuscular HGB Conc 32.6 g/dl (31.0-37.0); Mean Corpuscular Hemoglobin 34.3 pg (25.0-35.0); Mean Corpuscular Volume 105 fL (80-100); Monocytes # (Auto) 1.4 Thou/mm3 (0.0-0.8); Monocytes % (Auto) 14 % (0-12); Neutrophils # (Auto) 6.0 Thou/mm3 (1.8-7.7); Neutrophils % (Auto) 62 % (37-80); Nucleated Red Blood Cell # 0.00 Thou/mm3 (0.00-0.00); Nucleated Red Blood Cell % 0 /100 WBC (0); Platelet Count 262 Thou/mm3 (140-440); RDW Standard Deviation 58.5 fL (35.1-43.9); Red Blood Count 3.24 Miln/mm3 (4.50-5.90); White Blood Count 9.7 Thou/mm3 (3.8-10.6)
[2024-11-09 06:14] LABS: Alanine Aminotransferase 163 U/L (10-49); Albumin, Serum 3.4 gm/dL (3.4-4.8); Albumin/Globulin Ratio 1.3 (1.2-2.2); Alkaline Phosphatase 62 U/L (46-116); Anion Gap 10 (7-16); Aspartate Amino Transferase 191 U/L (0-34); BUN/Creatinine Ratio 19 Ratio (12-20); Bilirubin,Total 1.1 mg/dL (0.3-1.2); Blood Urea Nitrogen 45 mg/dL (9-23); Calcium 9.1 mg/dL (8.3-10.6); Calcium (Corrected) 9.6 mg/dL (8.5-10.1); Carbon Dioxide 24.7 mMol/L (20.0-31.0); Chloride 103 mMol/L (98-107); Creatinine (Component) 2.4 mg/dL (0.6-1.3); Estimated Creatinine Clearance 31.0 mL/min (>60); Globulin 2.7 gm/dL (2.3-3.5); Glucose 79 mg/dL (74-106); Magnesium 2.2 mg/dL (1.6-2.6); Osmolality,Calculated 286 (275-295); Phosphorous 4.4 mg/dL (2.4-5.1); Potassium 4.2 mMol/L (3.4-5.1); Sodium 138 mMol/L (136-145); Total Protein 6.1 gm/dL (5.7-8.2); eGFR 28 See Note
[2024-11-09] MEDS: HEPARIN SOD INJ 5000 UNIT/ML VIAL SC (08:27)
--- NOTE | 2024-11-09 08:30 | PC.SS ---
[employer] notified by bedside nurse that patient requesting to d/c home with hospice services. [employer] met with patient to provide overview of hospice services. [employer] informed patient that transition to hospice services signifies desire to not purse life sustaining procedures. Patient acknowledged understanding. Patient in possession of home oxygen. Patient declined hospital bed. Only form of DME requested rollator walker with seat. [employer] confirmed with patient's spouse that family will provide transport on behalf of the patient. Spouse confirmed need to bring portable oxygen upon transporting patient home in family vehicle. [employer] informed patient if he possessed preferred hospice agency. Patient did not state preference. [facility] on rotation for today. Patient and spouse in approval with [employer] submitting hospice referral to [facility]. 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 Hospice order generated. [employer] to submit hospice referral on [facility].
--- NOTE | 2024-11-09 09:10 | PC.SS ---
Hospice referral submitted on [facility]. Awaiting response.
--- NOTE | 2024-11-09 10:47 | PC.SS ---
update; SS contacted Yvette from [facility] to inform her that patient's was requesting early Discharge home. Yvette informed SS that the earliest the nurse could go out to the home would be around 2-2:30PM. SS contacted patient's Claudine and she is agreeable to transport patient home at 12:00PM. Spouce and patient aware that [facility] nurse will not arrive until 2PM. SS provided update to bedside nurse and Charge nurse. Patient alert and oriented X3 patient in position of home 02. Only required DME is Rollator walker. SS notified [facility].
--- NOTE | 2024-11-09 11:20 | PD.RESDS ---
Planned Discharge Date 11/09/24 DS: Providers Provider Date of admission: 11/07/24 14:29 Primary care physician: Ronni Boyle MD Admitting Provider: Luther Enciso MD Attending Provider on Admission: Gabby Riggins MD Consults: 11/08/24 08:42 Consult to Cardiology Routine Comment: Consulting Provider: Hunter Barrett 11/09/24 08:22 Referral Hospice Urgent Comment: Attending Provider on DC: Gabby Riggins MD Discharging Provider: Gabby Riggins MD DS: Diagnosis Problem List Completed Was Problem List Reviewed/Reconciled?: Yes Hospital Course Hospital Course Hospital course: Michela Jaimes is a 69-year-old male with PMHx of HFrEF 30-35%, CAD s/p 4 stents 5 years ago, CKD 3B, recurrent right-sided pleural effusion, presenting to the ED at [facility] with 3 days of worsening sob, admitted under observation for monitoring of 20% right basal pneumothorax. Patient had a thoracentesis done which yielded 750 cc of pleural fluids (patient has had multiple ED visits requiring drainage, last pleural analysis 07/2024 suggestive of non-malignant exudative. Patient was started on GDMT of metoprolol 50 mg daily, entresto 0.5 tab bid, Imaging Findings: Discharge Instructions Admission Diagnosis Patient plan of care was discussed with the attending physician, Dr. Riggins & resident physician Dr. Jovanny IBRAHIM PGY-1 Time Spent with Patient Time attestation: Total time spent providing and/or coordinating discharge services: Exam Vital Signs Temp Pulse Resp BP Pulse Ox O2 Del Method O2 Flow Rate 98.2 F 72 17 90/61 99 Nasal Cannula 2 11/09/24 08:00 11/09/24 11:00 11/09/24 11:00 11/09/24 11:00 11/09/24 11:00 11/09/24 03:00 11/09/24 06:10 Discharge Plan Plan Patient Disposition: Home w/HOSPICE Patient condition on transfer: Stable Prescriptions/Referrals Prescriptions/Med Rec: No Action furosemide 40 mg tablet 40 mg PO QDAY Patient Comments: TAKE 1 TABLET BY MOUTH EVERY DAY spironolactone 25 mg tablet 25 mg PO QDAY Patient Comments: TAKE 1 TABLET BY MOUTH EVERY DAY ibuprofen 600 mg tablet 600 mg PO Q8H PRN (Reason: pain) Referrals: Ronni Boyle MD [Primary Care Provider, Family Practice] Patient/Caregiver Discharge Instructions Discharge Activity: activity as tolerated Education Materials: Hospice The Importance of ..., Hospice Dyspnea Care, Hospice: [facility], [facility] Print Language: Kinyarwanda Stand Alone Forms: Selena Award Info., Patient Portal Info Letter Discharge Order Discharge Orders: Discharge (Routine); Ordered 11/09/24 Ordered By: Rambo Acosta
--- NOTE | 2024-11-09 11:58 | PD.RESPRO ---
Documentation for date of: 11/09/24 Subjective Subjective Interval history: Patient is 69 year old male with past medical history of HFrEF 30-35%, CAD s/p 4 stents 5 years ago, CKD 3B, recurrent right-sided pleural effusion initially presented to [facility] on 11/06 complaining of worsening shortness of breath, was found to have CHF exacerbation and was started on diuretics. Echo was done showing systolic heart failure with ejection fraction of 40 - 45% and grade 2 diastolic dysfunction. Patient was started on metoprolol and Entresto as a part of his GDMT, however patient had 2 rapid responses called overnight due to hypotension when he was given midodrine and 2 more rapid responses in the morning due to the same problem, his MAP was 59?61. Decision was made to upgrade patient to ICU for further management. NICOM showed patient is fluid responsive. Patient was given 250cc of IVF with improvement in his blood pressure, he was able to maintain MAP above 65. His GDMT was held including Entresto and metoprolol. Bedside echo showed ejection fraction of around 20%, in comparison to echo 11/07 showing ejection fraction 40-45%. Cardiology wants to consider initiate transfer for LVAD. 11/09/2024: Today patient is resting in bed with no acute complaints and is requesting that he go home. Patient stated that he does not want any invasive procedures or therapy done for him, states he is aware of the possible LVAD treatment suggested by Dr. Barrett, patient chooses to be on hospice. Patient states that was discussed with his . Patients vitals are stable, saturating well on room air and has stable blood pressures. At this moment patient does not require any vasopressors, he is able to protect airway, O2 saturating well on room air and his mentation is well intact, therefore patient will be downgraded to floors since no need for ICU level care. Exam Vital Signs Temp Pulse Resp BP Pulse Ox O2 Del Method O2 Flow Rate 98.2 F 72 17 90/61 99 Nasal Cannula 2 11/09/24 08:00 11/09/24 11:00 11/09/24 11:00 11/09/24 11:00 11/09/24 11:00 11/09/24 03:00 11/09/24 06:10 Narrative Exam General: No acute distress; A&Ox3 Skin: Warm, dry, intact, no obvious rash. HENT: NCAT, EOMI, not icteric. External ears normal. No rhinorrhea. Moist mucous membranes Cardiovascular: Regular rate and rhythm, no murmur, +S1/S2. Respiratory: Lungs CTAB GI: Soft, nontender, mildly distended. No guarding or rebound tenderness. Extremities: Bilateral LE edema 2+, no cyanosis, no clubbing. Extremity pulses present Neuro: No focal deficits observed. Conversant, moving all extremities. No overt cerebellar signs/incoordination. Psychiatric: Cooperative, appropriate affect. Objective Labs 11/09/24 04:36 11/09/24 04:36 Labs: Laboratory Results - last 24 hr 11/08/24 11/09/24 14:53 04:36 WBC 9.7 RBC 3.24 L Hgb 11.1 L Hct 34.1 L MCV 105 H MCH 34.3 MCHC 32.6 RDW Std Deviation 58.5 H Plt Count 262 Neut % (Auto) 62 Lymph % (Auto) 22 Coffey % (Auto) 14 H Eos % (Auto) 1 Baso % (Auto) 1 Neut # (Auto) 6.0 Lymph # (Auto) 2.1 Coffey # (Auto) 1.4 H Eos # (Auto) 0.1 Baso # (Auto) 0.1 Immature Gran # (Auto) 0.03 H Absolute Nucleated RBC 0.00 Immature Gran % 0 Nucleated RBC % 0 Sodium 138 Potassium 4.2 Chloride 103 Carbon Dioxide 24.7 Anion Gap 10 BUN 45 H Creatinine 2.4 H Estim Creat Clear Calc 31.0 L eGFR 28 L BUN/Creatinine Ratio 19 Glucose 79 Calculated Osmolality 286 Calcium 9.1 Corrected Calcium 9.6 Phosphorus 4.4 Magnesium 2.2 Total Bilirubin 1.1 AST 191 H ALT 163 H Alkaline Phosphatase 62 Troponin I 0.160 H* Total Protein 6.1 Albumin 3.4 D Globulin 2.7 Albumin/Globulin Ratio 1.3 Quality Measures Quality Measures VTE prophylaxis Advance care planning discussed with:: patient and spouse Assessment & Plan Assessment Current Active Medications: Generic Name Dose Route Start Last Admin Trade Name Freq PRN Reason Stop Dose Admin Acetaminophen 650 mg 11/06/24 23:03 11/07/24 20:00 Acetaminophen 325 Mg Tablet PO 12/06/24 23:02 650 mg Q6H PRN Administration PAIN SCALE 1-3 (mild Acetaminophen 650 mg 11/06/24 23:03 Acetaminophen 325 Mg Tablet PO 12/06/24 23:02 Q6H PRN Fever >100.4 Hydrocodone Bitart/Acetaminophen 1 tab 11/06/24 23:03 Hydrocodone/Apap 10/325 Tab PO 11/11/24 23:02 Q4HR PRN PAIN SCALE 7-10 (Severe Furosemide 40 mg 11/07/24 09:00 11/07/24 08:51 Furosemide Inj 10 Mg/Ml 4ml Vial IVP 12/07/24 08:59 40 mg On Hold: 11/07/24 19:44 QDAY EVETTE Administration Heparin Sodium (Porcine) 5,000 unit 11/07/24 09:00 11/09/24 08:27 Heparin Sod Inj 5000 Unit/Ml Vial SC 11/21/24 08:59 5,000 unit BID EVETTE Administration Metoprolol Succinate 25 mg 11/07/24 11:45 11/07/24 12:58 Metoprolol Succinate Xl 25 Mg Tabcr PO 12/07/24 11:44 25 mg On Hold: 11/07/24 19:44 QDAY EVETTE Administration Midodrine 10 mg 11/08/24 14:00 11/09/24 05:04 Midodrine 5 Mg Tablet PO 12/08/24 13:59 10 mg TID EVETTE Administration Ondansetron HCl 4 mg 11/06/24 23:03 Ondansetron Inj 2 Mg/Ml Inj 2 Ml IVP 12/06/24 23:02 Q6H PRN NAUSEA OR VOMITING Protocol Oxycodone/Acetaminophen 1 tab 11/06/24 23:03 Oxycodone/Apap 5/325 Tablet PO 11/11/24 23:02 Q6H PRN PAIN SCALE 4-6 (Moderate Pantoprazole Sodium 40 mg 11/07/24 09:00 11/09/24 08:26 Pantoprazole Inj 40 Mg Vial IVP 12/07/24 08:59 40 mg QDAY EVETTE Administration Polyethylene Glycol 17 gm 11/08/24 12:44 11/08/24 13:09 Polyethylene Glycol 17 Gm Packet PO 12/08/24 12:44 17 gm QDAY PRN Administration CONSTIPATION Sacubitril/Valsartan 0.5 tab 11/07/24 11:45 11/07/24 12:58 Sacubitril 24 Mg/Valsartan 26 Mg Tablet PO 10/29/25 11:44 0.5 tab On Hold: 11/07/24 19:44 BID VEETTE Administration Spironolactone 25 mg 11/07/24 09:00 11/07/24 08:54 Spironolactone 25 Mg Tablet PO 12/07/24 08:59 25 mg On Hold: 11/07/24 19:45 QDAY EVETTE Administration Plan Patient is 69 years old male with past medical history of HFrEF 30-35%, CAD s/p 4 stents 5 years ago, CKD 3B, recurrent right-sided pleural effusion initially presented to [facility] on 11/06 complaining of worsening shortness of breath, was found to have CHF exacerbation and was started on diuretics. Echo was done showing systolic heart failure with ejection fraction of 40 - 45% and grade 2 diastolic dysfunction. Yesterday patient was started on metoprolol and Entresto as a part of his GDMT, however patient had 2 rapid responses called overnight due to hypotension when he was given midodrine and 2 more rapid responses in the morning due to the same problem, his MAP was 59?61. Decision was made to upgrade patient to ICU for further management. NICOM showed patient is fluid responsive. Patient was given 250cc of IVF with improvement in his blood pressure, he was able to maintain MAP above 65. His GDMT was held including Entresto and metoprolol. Bedside echo showed ejection fraction of around 20%, in comparison to echo yesterday showing ejection fraction 40-45%. Cardiology wants to initiate transfer for LVAD. At this moment patient does not require any vasopressors, he is able to protect airway, O2 saturating well on room air and his mentation is well intact, therefore patient will be downgraded to floors since no need for ICU level care. NEURO #No active problems CARDIO #Refractory hypotension, likely 2/2 synergistic BP-lowering effects of diuretics and antihypertensives Patient, whose heart seems quite weak, was started on all GDMT medications at once which seemed to cause his BP to plummet through a combination of volume depletion (Lasix and spironolactone), decreased cardiac contractility (metoprolol), and systemic vasodilation (Entresto) Dx: -NICOM w/ PLR suggested fluid responsiveness, given 250 mL of fluid, BP better now Rx: -Continue PO midodrine 10 mg TID -After being given a small bolus of fluid, patient has not required any Levophed or dobutamine to maintain MAP > 60 (has actually been clearing the parameter of MAP > 65 in the setting of significantly reduced EF) #HFrEF (exacerbation) Dx: -11/07 echo showed normal left ventricular size and wall thickness, hypokinetic basal anterior and mid-anterior septal wall motion. Grade II diastolic dysfunction. The ejection fraction is visually estimated at 40-45%. The right ventricle is normal in size and systolic function. RVSP 51 mmHg with RAP 8. Severe PHTN. Severely dilated LA and RA. MAC. Moderate to severe MR and TR. IVC mildly dilated measuring 2.4 cm -11/08 Bedside echo showed poor EF 15-20% -11/06 BNP 2619 -Trop 0.184 (likely Type II NSTEMI, demand ischemia) Rx: -Dobutamine drip is not indicated in patient's with ongoing hypotension (should only be initiated if Levophed is insufficient as dobutamine results in further hypotension at first) -Dr. Barrett recommended transfer to [facility] for LVAD placement and possibility of heart transplant PULM #Acute on chronic hypoxic respiratory failure #Recurrent right sided pleural effusions likely 2/2 ex vacuo pneumothorax, s/p thoracentesis Patient has a history of repeat right-sided pleural effusions requiring repeat therapeutic thoracenteses, with one being done this admission that removed 750 cc's of pleural fluid (transudative) and the most recent one prior being done at [facility] 3 weeks ago The resulting 20% stable pneumothorax was likely not caused by the thoracentesis but rather is an already extant ex vacuo pneumothorax (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 and does not expand to fill the vacuum) creating a chronic space of negative pressure that constantly draws fluid out of the lung vasculature This theory is supported by the fact that this pleural effusion occurs at the same place every time (right lung base) and that the patient's pneumothorax does not change locations Rx: -Continue therapeutic thoracenteses as needed -Supplemental oxygen as needed GI #Transaminitis AST 120 -> 191, ALT 95 -> 163 Possibly 2/2 hypotension and liver hypoperfusion Rx: -Maintain BP within goal parameters (MAP >60) #Constipation Last BM 11/06, complains of constipation (on [place]) Rx: -Bowel regimen, senna or docusate NEPHRO #BOO on CKD Stage IIIB Creatinine 2.4 -> 2.4, BUN 38 -> 45 (baseline creatinine 1.9) Likely 2/2 a combination of volume depletion from excessive diuresis and hypotension -> renal hypoperfusion -Maintain BP within goal parameters (MAP >60) -Gentle fluid resuscitation if seemingly hypovolemic and fluid responsive -Avoid nephrotoxins -Renally dose medications HEME #Macrocytic anemia Hgb 11.6 -> 11.1, B12 high, folate WNL, iron panel suggestive of iron deficiency Rx: -Transfuse if hemoglobin < 8 ENDO #No active problems ID #No active problems Goals of Care Morning of 11/09, Patient stated that he does not want any invasive procedures or therapy done for him, states he is aware of the possible LVAD treatment suggested by Dr. Barrett, patient chooses to be on hospice. Patient states that was discussed with his . Disposition: Admitted to ICU due to recurrent hypotension; stable since holding of GDMT; plan to downgrade. DVT prophylaxis: SubQ Heparin 5000 BID GI prophylaxis: IV Protonix 40 mg qD Diet: Cardiac Alejandra: Present Lines: Peripheral IV Antibiotics: None Goals of Care: Hospice CODE STATUS: FULL Patient plan of care was discussed with the attending physician, Dr. Riggins & senior resident Dr. Jovanny IBRAHIM PGY-1 Attending Provider Attestation/Addendum Patient seen and examined. Discussed with resident team. This is a 69-year-old male who was admitted to the ICU yesterday after several rapid responses for hypotension. It is felt that these episodes were related to the beta-junior and Entresto along with diuresis that been recently started. He is felt to have advanced heart failure with reduced EF calculated around 20%. He has had long discussions with cardiology Dr. Barrett regarding possible treatments. At this point in time he has decided to focus on quality of life and has decided to go home on hospice. He is awake alert and oriented and capable of making his own medical decisions at this point in time. Case discussed with ICU team Labs, imaging and records reviewed Approximately 20 minutes required for evaluation, exam, review, intervention, discussion formulation of plan of care for this elderly gentleman
--- NOTE | 2024-11-09 15:21 | ESDS_ITS ---
<Statement entered by Rambo Acotsa MD - 11/09/24 19:22> Patient seen and examined at bedside. I discussed and supervised with the compliance intern physician who took care of this patient. I personally saw and examined the patient. I agree with most of the assessment and plan. Plan of care discussed with attending Dr. Riggins. Rambo Acosta MD PGY-2 Planned Discharge Date 11/09/24 DS: Providers Provider Date of admission: 11/07/24 14:29 Primary care physician: Ronni Boyle MD Admitting Provider: Luther Enciso MD Attending Provider on Admission: Gabby Riggins MD Consults: 11/08/24 08:42 Consult to Cardiology Routine Comment: Consulting Provider: Hunter Barrett 11/09/24 08:22 Referral Hospice Urgent Comment: Attending Provider on DC: Gabby Riggins MD Discharging Provider: Gabby Riggins MD DS: Diagnosis Problem List Completed Was Problem List Reviewed/Reconciled?: Yes Hospital Course Hospital Course Hospital course: Patient is 69 years old male with past medical history of HFrEF 30-35%, CAD s/p 4 stents 5 years ago, CKD 3B, recurrent right-sided pleural effusion initially presented to [facility] on 11/06 complaining of worsening shortness of breath, was found to have CHF exacerbation and was started on diuretics. Patient was also found to have right-sided pleural effusion on CXR, had a thoracentesis done which removed 750 cc pleural fluids. Patient likely has an extant ex vacuo pneumothorax creating a chronic space of negative pressure that constantly draws fluid out of the lung vasculature. Echo was initially done showing systolic heart failure with ejection fraction of 40 - 45% and grade 2 diastolic dysfunction. Patient was started on metoprolol and Entresto as a part of his GDM on 11/07, however patient had 2 rapid responses called overnight due to hypotension when he was given midodrine and 2 more rapid responses that next morning due to the same problem, his MAP was 59?61. Decision was made to upgrade patient to ICU for further management. NICOM showed patient is fluid responsive. Patient was given 250cc of IVF with improvement in his blood pressure, he was able to maintain MAP above 65. His GDMT was held including Entresto and metoprolol. Bedside echo at that time showed ejection fraction of around 20%. Cardiology wants to initiate transfer for LVAD. Patient stated that he does not want any invasive procedures or therapy done for him, states he is aware of the possible LVAD treatment suggested by Dr. Barrett, patient chooses to be on hospice. Patient states that was discussed with his . At this moment patient does not require any vasopressors, he is able to protect airway, is breathing and saturating well on room air and his mentation is intact and is clinically stable for discharge. Discharge Instructions Patient planned to undergo Hospice Care Follow up further care with Hospice Admission Diagnosis #Refractory hypotension, likely 2/2 synergistic BP-lowering effects of diuretics and antihypertensives #HFrEF (exacerbation) #Acute on chronic hypoxic respiratory failure #Recurrent right sided pleural effusions likely 2/2 ex vacuo pneumothorax, s/p thoracentesis #Transaminitis #Constipation #BOO on CKD Stage IIIB #Macrocytic anemia Patient plan of care was discussed with the attending physician, Dr. Oleg Lazar MD PGY-1 Time Spent with Patient Time attestation: Total time spent providing and/or coordinating discharge services: Time spent: Greater than 30 minutes Exam Vital Signs Temp Pulse Resp BP Pulse Ox O2 Del Method O2 Flow Rate 98.6 F 78 22 H 93/66 99 Nasal Cannula 2 11/09/24 12:00 11/09/24 13:01 11/09/24 13:01 11/09/24 13:01 11/09/24 13:01 11/09/24 03:00 11/09/24 06:10 Narrative Exam General: No acute distress; A&Ox3 Skin: Warm, dry, intact, no obvious rash. HENT: NCAT, EOMI, not icteric. External ears normal. No rhinorrhea. Moist mucous membranes Cardiovascular: Regular rate and rhythm, no murmur, +S1/S2. Respiratory: Lungs CTAB GI: Soft, nontender, mildly distended. No guarding or rebound tenderness. Extremities: Bilateral LE edema 2+, no cyanosis, no clubbing. Extremity pulses present Neuro: No focal deficits observed. Conversant, moving all extremities. No overt cerebellar signs/incoordination. Psychiatric: Cooperative, appropriate affect. Discharge Plan Plan Patient Disposition: Home w/HOSPICE Patient condition on transfer: Stable Care Plan Goals: Patient planned to undergo Hospice Care Follow up further care with Hospice Prescriptions/Referrals Prescriptions/Med Rec: No Action furosemide 40 mg tablet 40 mg PO QDAY Patient Comments: TAKE 1 TABLET BY MOUTH EVERY DAY spironolactone 25 mg tablet 25 mg PO QDAY Patient Comments: TAKE 1 TABLET BY MOUTH EVERY DAY ibuprofen 600 mg tablet 600 mg PO Q8H PRN (Reason: pain) Referrals: Ronni Boyle MD [Primary Care Provider, Family Practice] Patient/Caregiver Discharge Instructions Discharge Activity: activity as tolerated Education Materials: Hospice The Importance of ..., Hospice Dyspnea Care, Hospice: [facility], [facility] Print Language: Togolese Stand Alone Forms: Selena Award Info., Patient Portal Info Letter Discharge Order Discharge Orders: Discharge (Routine); Ordered 11/09/24 Ordered By: Rambo Acosta Quality Discharge Quality Measures VTE prophylaxis
== END 2024-11-09 13:12 | disposition hospice, home (50) | DRG 199 ==
LOC: SERX 22:12 → SERHOLD 23:37 → S3NX 11-07 06:31 → SERHOLD 11-07 06:31 → S3NX 11-07 06:31 → S2SX 11-08 10:25
PROVIDERS: Admitting Provider Student in an Organized Health Care Education/Training Program; Emergency Provider Emergency Medicine; PCP Family Medicine; Visit Provider Internal Medicine
DX: J95.811 Postprocedural pneumothorax (principal); I50.23 Acute on chronic systolic (congestive) heart failure; J96.21 Acute and chronic respiratory failure with hypoxia; N17.9 Acute kidney failure, unspecified; J91.8 Pleural effusion in other conditions classified elsewhere; Q24.5 Malformation of coronary vessels; Z95.5 Presence of coronary angioplasty implant and graft; I25.10 Atherosclerotic heart disease of native coronary artery without angina pectoris; R63.4 Abnormal weight loss; N18.32 Chronic kidney disease, stage 3b; D63.1 Anemia in chronic kidney disease; Z79.899 Other long term (current) drug therapy; I25.2 Old myocardial infarction; I27.20 Pulmonary hypertension, unspecified; D53.9 Nutritional anemia, unspecified; K59.00 Constipation, unspecified; R74.01 Elevation of levels of liver transaminase levels
CPT/HCPCS: 36415; 71045; 71046; 80053; 82150; 82607; 82746; 82945; 83540; 83550; 83615; 83735; 83880; 84100; 84157; 84478; 84484; 85025; 87070; 87075; 87205; 87811; 89051; 93005; 93225; 93306; 96374; 96375; 99284; G0378; J1644; J1938; J2270; J2405; J2470; J7120; A9270